=== PATIENT | female | born 1980 | race Caucasian/White ===

== ENCOUNTER → 2016-05-01 | Outpatient (CLI) | payer OTHER ==
[~2016-05-01] MED LIST: ACET-1256 PO; ALBU1AER9 INH; AMPH20TA2 PO; CHOL100010 PO; CHOL100027 PO; DIPH1TAB PO; ERGO1CAP41 PO; FLUT0.15 NAE; FLUT220A INH; FLVHFA44 INH; FURO20TA PO; GADAVIST IV PRN; IBUP-1050 PO; IMD2X PO; IPRASOL4 INH; LEVO112T2 PO; LEVO112T4 PO; LEVO200T6 PO; LURA80TA PO; MECL1TAB42 PO; MULT1CAP3 PO; OMEP20CA9 PO; OXYC-57 PO; OXYC1TAB3 PO; POLY335019 PO; RANI300T2 PO; SNG10 PO; SUCR1TAB PO; VALA500T60 PO; VLM2 PO; VLT500 PO; VNTHFA/IN INH; ZFRODT/8 PO; [UNRECOGNIZED DRUG - CODE] PO
--- NOTE | 2016-05-01 16:06 | DIAGNOSTIC IMAGING REPORT ---
MRI brain/pituitary BRAIN COMBO FOR PITUITARY CLINICAL HISTORY: CHRONIC NON-INTRACTABLE LEE,IRREG MENSES postoperative evaluation TECHNIQUE: Multi axial MRI acquisition pre and postcontrast administration COMPARISON STUDY: 05/19/2015 FINDINGS: Stable postoperative changes right cerebral hemisphere. Associated component of postprocedural encephalomalacia also unchanged. Ventricular system is midline. No evidence for midline structure deviation. Specific evaluation of the pituitary and parasellar region shows a pituitary to be unremarkable. There are no negative lay enhancing nodules. Pituitary stock and optic chiasm are unremarkable. IMPRESSION: 1. Stable postoperative change. 2. Normal study of the brain other than that noted. 3. Normal-appearing pituitary and parasellar region. Electronically signed by: Clay Arshad M.D. 05/01/2016 4:05 PM Dictated Date/Time: 05/01/2016 4:01 PM
== END | disposition home or self-care (01) ==
LOC: C.MRI 14:51
PROVIDERS: ATTEND Family Medicine
DX: R51 Headache (principal); C71.4 Malignant neoplasm of occipital lobe; D48.9 Neoplasm of uncertain behavior, unspecified; E22.9 Hyperfunction of pituitary gland, unspecified; R94.6 Abnormal results of thyroid function studies

== ENCOUNTER 2016-06-05 09:07 | Day surgery (SDC) | payer OTHER ==
[2016-05-27 09:55] VITALS: BMI 43.0
--- NOTE | 2016-05-27 15:52 | PAT Medication Instructions ---
Service Date May 27, 2016. Current Home Medication List Acetaminophen (Tylenol), 1,000 MG PO Q6H PRN for Pain Albuterol (Proair Hfa), 2 PUFFS INH Q4H PRN for SOB/Wheezing Amphetamine-Dextroamphetamine 20MG (Adderall 20MG), 1 TAB PO BID Cholecalciferol (Vitamin D), 1,000 INTER.UNIT PO DAILY Diazepam (Diazepam), 2 MG PO Q12 PRN for Anxiety Diphenhydramine Hcl (Benadryl Allergy), 25 MG PO prn ud Fluticasone Propionate Hfa (Flovent Hfa 220MCG Inhaler), 1 PUFF INH BID PRN for SOB/Wheezing Fluticasone Propionate (Nasal) (Flonase Allergy Relief), 2 SPRAYS FLAVIO DAILY PRN for Allergy Symptoms Furosemide (Lasix), 20 MG PO for leg swelling Ipratropium-Albuterol (Duoneb), 1 TREATMENT INH QID PRN for SOB/Wheezing Levothyroxine Sodium (Levothyroxine Sodium), 1 TAB PO Loperamide Hcl (Imodium), 2 MG PO DAILY PRN for Diarrhea Lurasidone Hcl (Latuda), 80 MG PO HS Meclizine Hcl (Meclizine Hcl), 25 MG PO TID PRN for Dizziness Montelukast Sod (Montelukast Sodium), 10 MG PO DAILY Ondansetron (Ondansetron Odt), 8 MG PO Q8 PRN for Nausea Polyethylene Glycol 3350 (Miralax), 17 GM PO DAILY PRN for Constipation Simethicone (Hm Gas Relief), 80-160 MG PO QID PRN for GAS Valacyclovir Hcl (Valtrex), 500 MG PO DAILY Medication Instructions For Your Scheduled Surgery - Hold the following medications the morning of surgery: Amphetamine-Dextroamphetamine 20MG (Adderall 20MG), 1 TAB PO BID Cholecalciferol (Vitamin D), 1,000 INTER.UNIT PO DAILY Diphenhydramine Hcl (Benadryl Allergy), 25 MG PO prn ud Furosemide (Lasix), 20 MG PO for leg swelling Loperamide Hcl (Imodium), 2 MG PO DAILY PRN for Diarrhea Polyethylene Glycol 3350 (Miralax), 17 GM PO DAILY PRN for Constipation Simethicone (Hm Gas Relief), 80-160 MG PO QID PRN for GAS - Take the following medications the morning of surgery with a sip of water OTHERWISE NOTHING TO EAT OR DRINK AFTER MIDNIGHT: Acetaminophen (Tylenol), 1,000 MG PO Q6H PRN for Pain (may take if needed up to 4 hours prior to surgery) Albuterol (Proair Hfa), 2 PUFFS INH Q4H PRN for SOB/Wheezing (use if needed; BRING TO HOSPITAL) Diazepam (Diazepam), 2 MG PO Q12 PRN for Anxiety Fluticasone Propionate Hfa (Flovent Hfa 220MCG Inhaler), 1 PUFF INH BID PRN for SOB/Wheezing Fluticasone Propionate (Nasal) (Flonase Allergy Relief), 2 SPRAYS FLAVIO DAILY PRN for Allergy Symptoms Ipratropium-Albuterol (Duoneb), 1 TREATMENT INH QID PRN for SOB/Wheezing Levothyroxine Sodium (Levothyroxine Sodium), 1 TAB PO Valacyclovir Hcl (Valtrex), 500 MG PO DAILY Meclizine Hcl (Meclizine Hcl), 25 MG PO TID PRN for Dizziness Ondansetron (Ondansetron Odt), 8 MG PO Q8 PRN for Nausea - Take the following medications as scheduled the night before surgery: Acetaminophen (Tylenol), 1,000 MG PO Q6H PRN for Pain Albuterol (Proair Hfa), 2 PUFFS INH Q4H PRN for SOB/Wheezing Amphetamine-Dextroamphetamine 20MG (Adderall 20MG), 1 TAB PO BID Diazepam (Diazepam), 2 MG PO Q12 PRN for Anxiety Fluticasone Propionate Hfa (Flovent Hfa 220MCG Inhaler), 1 PUFF INH BID PRN for SOB/Wheezing Fluticasone Propionate (Nasal) (Flonase Allergy Relief), 2 SPRAYS FLAVIO DAILY PRN for Allergy Symptoms Ipratropium-Albuterol (Duoneb), 1 TREATMENT INH QID PRN for SOB/Wheezing Lurasidone Hcl (Latuda), 80 MG PO HS Meclizine Hcl (Meclizine Hcl), 25 MG PO TID PRN for Dizziness Montelukast Sod (Montelukast Sodium), 10 MG PO DAILY Ondansetron (Ondansetron Odt), 8 MG PO Q8 PRN for Nausea If you have any questions please call us at [phone] or [phone] or [phone]
[~2016-06-05] VITALS: Ht 160 cm; Wt 112.4 kg
[~2016-06-05 09:07] MED LIST changes: +CEFAZOLIN 2000 MG/60 ML D5W IV SCH; -CHOL100027 PO; -DIPH1TAB PO; +DIPH1TAB87 PO; -ERGO1CAP41 PO; -FLVHFA44 INH; -GADAVIST IV PRN; -IBUP-1050 PO; +LACTATED RINGER'S 1000ML 1,000 ML IV SCH; -LEVO112T2 PO; -LEVO112T4 PO; -MULT1CAP3 PO; -OMEP20CA9 PO; -OXYC-57 PO; -OXYC1TAB3 PO; -RANI300T2 PO; -SUCR1TAB PO; -VALA500T60 PO; -VNTHFA/IN INH
[2016-06-05 09:20] VITALS: BP 105/59; PULSE 58; TEMP 36.7; O2SAT 98; Ht 160 cm; Wt 112.4 kg
[2016-06-05] MEDS ORDERED: PROPOFOL IV EMULSION 10 MG/ML 20 ML VIAL IV ONE (11:15)
[2016-06-05] MEDS ORDERED: ROCURONIUM BROMIDE 10 MG/ML 5 ML VIAL ONE (11:15)
[2016-06-05] MEDS ORDERED: FENTANYL CITRATE INJ 50 MCG/1 ML 2 ML VIAL ONE (11:16)
[2016-06-05] MEDS ORDERED: MIDAZOLAM HCL 1 MG/ML 2ML VIAL ONE (11:18)
--- NOTE | 2016-06-05 11:30 | History & Physical Bridge Note ---
H&P Re-Evaluation Bridge Note: I have examined the patient, reviewed the History & Physical and in the interval since the performance of the History & Physical I have noted the following changes of clinical significance: No changes noted
[2016-06-05] MEDS ORDERED: BUPIVACAINE 0.5 % 5 MG/1 ML MPF 30ML VIAL ONE (11:49)
[2016-06-05] MEDS ORDERED: BACITRACIN OINT 15 GM TUBE ONE (11:49)
[2016-06-05] MEDS ORDERED: LIDOCAINE HCL 1% 20 ML VIAL ONE (11:49)
[2016-06-05] MEDS ORDERED: ATROPINE SULFATE 0.1 MG/ML 5ML SYR IV PRN (12:00)
[2016-06-05] MEDS ORDERED: ONDANSETRON INJ 2 MG/ML 2 ML VIAL IV PRN (12:00)
[2016-06-05] MEDS ORDERED: EpHEDrine SULFATE INJ 50 MG/ML AMP IV PRN (12:00)
[2016-06-05] MEDS ORDERED: LIDOCAINE HCL 2% 2 ML VIAL (20MG/ML) ONE (12:06)
[2016-06-05] MEDS ORDERED: DEXAMETHASONE SOD INJ 4 MG/ML VIAL ONE (12:32)
[2016-06-05] MEDS ORDERED: GLYCOPYRROLATE INJ 0.2 MG/ML VIAL ONE (13:03)
[2016-06-05] MEDS ORDERED: ONDANSETRON INJ 2 MG/ML 2 ML VIAL ONE (13:03)
[2016-06-05] MEDS ORDERED: NEOSTIGMINE METHYLSULFATE 5 MG/5 ML SYR ONE (13:03)
--- NOTE | 2016-06-05 13:17 | [facility] Post Operative Brief Note ---
Immediate Operative Summary Operative Date Jun 05, 2016. 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
[2016-06-05] MEDS ORDERED: OXYC-57 PO (13:20)
--- NOTE | 2016-06-05 13:23 | Discharge Instructions ---
Discharge Instructions Date of Service Jun 05, 2016. Visit Reason for Visit: Epigastric Pain Discharge Discharge Diagnosis / Problem: S/P laparoscopic cholecystectomy Discharge Goals Goal(s): Decrease discomfort, Improve function Activity Recommendations Activity Limitations: per Instructions/Follow-up section Lifting Limitations: no more than 25 pounds Exercise/Sports Limitations: gradually increase as tolerated May Resume Sexual Activity: when tolerated Shower/Bathe: may shower/bathe in 3 days Driving or Machine Use: resume 3 days after discharge Anesthesia . Post Anesthesia Instructions: If you have had General Anesthesia or IV Sedation: * Do not drive today. * Resume driving when surgeon permits. * Do not make important decisions or sign legal documents today. * Call surgeon for: 1. Temperature elevations greater than 101 degrees F. 2. Uncontrollable pain. 3. Excessive bleeding. 4. Persistent nausea and vomiting. 5. Medication intolerance (nausea, vomiting or rash). * For nausea and vomiting use only clear liquids such as: tea, soda, bouillon until nausea subsides, then gradually increase diet as tolerated. * If you have any concerns or questions, call your surgeon's office. If physician is unavailable and it is an emergency, call 911 or go to the nearest emergency room. . Instructions / Follow-Up Instructions / Follow-Up keep all dressing on for 4 days, she can take a shower on 06/09/2016, no driving while taking pain medicine, follow up 1 week, Diet Recommendations Recommended Home Diet: resume previous diet Procedures Procedures Performed: laproscopic cholecystectomy Pending Studies Studies pending at discharge: no Medical Emergencies . Who to Call and When: Medical Emergencies: If at any time you feel your situation is an emergency, please call 911 immediately. . Non-Emergent Contact Non-Emergency issues call your: Surgeon Call Non-Emergent contact if: you have a fever, temperature is above 100.5, your pain is not controlled, your pain is worsening, wound has increased drainage, wound has increased redness . . "Provider Documentation" section prepared by Wilton Bowden. [place] Drug Monitoring Program Search Results: no issues identified
[2016-06-05] MEDS: FENTANYL CITRATE INJ 50 MCG/1 ML 2 ML VIAL IV PRN ×4 (13:25→13:43)
[2016-06-05] MEDS ORDERED: HYDROmorphone INJ 1 MG/ML SYR IV PRN (13:30)
[2016-06-05] MEDS ORDERED: OXYCODONE/ACETAMINOPHEN 5-325 TAB PO PRN (13:30)
--- NOTE | 2016-06-05 14:00 | Anesthesiology Progress Note ---
Anesthesia Post Op Note Date & Time Jun 05, 2016 at 13:59 Vital Signs Pain Intensity: 5 Vital Signs Past 12 Hours Date Time Temp Pulse Resp B/P Pulse Ox O2 Delivery O2 Flow Rate FiO2 06/05/16 13:45 58 15 106/58 97 Nasal Cannula 2 06/05/16 13:35 60 11 112/60 98 Nasal Cannula 2 06/05/16 13:25 59 14 109/68 94 Room Air 06/05/16 13:18 36.2 68 16 149/101 94 Room Air 06/05/16 09:20 36.7 58 18 105/59 98 Room Air Notes Mental Status: alert / awake / arousable, participated in evaluation Pt Amnestic to Procedure: Yes Nausea / Vomiting: adequately controlled Pain: adequately controlled Airway Patency, RR, SpO2: stable & adequate BP & HR: stable & adequate Hydration State: stable & adequate Anesthetic Complications: no major complications apparent Pt doing well.
[2016-06-05 14:14] VITALS: BP 128/68; PULSE 58; TEMP 36.5; O2SAT 96
[2016-06-05 14:45] VITALS: BP 131/79; PULSE 55; O2SAT 95
[2016-06-05] MEDS ORDERED: OXYCODONE/ACETAMINOPHEN 5-325 TAB ONE (14:57)
[2016-06-05 15:15] VITALS: BP 140/88; PULSE 55; TEMP 36.6; O2SAT 97
--- NOTE | 2016-06-05 22:09 | OPERATIVE REPORT ---
DATE OF OPERATION: 06/05/2016 PREOPERATIVE DIAGNOSIS: Dysfunctioning of the gallbladder. POSTOPERATIVE DIAGNOSIS: Same. PROCEDURE: Laparoscopic cholecystectomy. SURGEON: Dr. Wilton Bowden. ANESTHESIA: General. ESTIMATED BLOOD LOSS: About 20 mL FINDINGS: Dysfunction of the gallbladder and chronic cholecystitis. IV FLUIDS: 1000 mL COMPLICATIONS: None. INDICATIONS FOR THE PROCEDURE: This is a 35-year-old female, who presented with right upper quadrant pain. The patient has a HIDA scan showing dysfunction of the gallbladder and patient will be required to do a laparoscopic cholecystectomy. I did talk to the patient about the benefit, risk, alternate procedure. I indicated the risks may include, but not limited, such as bleeding, infection, injury to common bile duct, may need an ERCP, DVT, incisional hernia, even . The patient understands and she signed informed consent and I answered all questions. DETAILS OF PROCEDURE: We brought the patient to the OR and put the patient in the supine position. The patient received SCDs on bilateral legs to prevent DVT. Also, the patient received 2 grams Ancef IV for prophylactic antibiotic. The patient received general anesthesia without difficulty. The abdomen was prepped and draped in routine sterile fashion. After a timeout, I injected local the anesthesia just above umbilicus. Then I made a small incision just above umbilicus, opened fascia and opened peritoneum under direct vision. I put the Mansi trocar in, connected to CO2 to create a pneumoperitoneum. Flow rate is 6 liter per minute. Pressure not more than 14 mmHg. Once we got a nice pneumoperitoneum, we put a 10 mm camera in, looked around the abdomen showing normal findings on the stomach, small bowel, large bowel; however, there was some omentum covering the gallbladder showing chronic cholecystitis. Then, we put another 3.5 mm trocar on the right upper quadrant. Once all trocars were in, I put a grasper in to hold the base of the gallbladder, put a direction to the diaphragm and put another grasper in to hold the pouch of the gallbladder, put the latter in to expose the triangle of Calot. The cystic duct was identified and mobilized. Then I put two 5 mm metal clips on the proximal cystic duct and one on the distal cystic duct. Then, I used the scissors, transecting the cystic duct. The cystic artery was identified and mobilized. Then, I put two 5 mm metal clips on the cystic artery proximally and one on the distal. Then, I used the scissors, transecting the cystic artery and then used the Bovie to take down the gallbladder without difficulty from the liver bed. Rechecked and no active bleeding, no bile leak. Then we removed the gallbladder through the catch bag. Then, we reinserted Mansi trocar in, connected to CO2 to create a pneumoperitoneum again, looked around the abdomen showing normal findings, no active bleeding on the liver bed, no bile leak on the liver bed and no active bleeding from the trocar sites. After we removed all trocars under direct vision, the pneumoperitoneum released, I closed the umbilical fascial layer by using 3-0 Vicryl [id number] x2, closed subcutaneous layer by using 2-0 Vicryl, closed skin by using 4-0 Vicryl, another 3.5 mm trocar site closed skin only by using 4-0 Vicryl. Then we put the dressing on. The patient tolerated the procedure well. The specimen sent to pathology. All the instrument, needles and sponge count correct x2 at the end of case. The patient transferred to recovery room in stable condition. After the procedure, I did talk to a patient family member about the OR findings, the procedure we did and they understand. I will follow up the patient in 1 week. I attest to the content of the Intraoperative Record and any orders documented therein. Any exceptions are noted below. AMEENA
[2016-06-06] MEDS ORDERED: CEFAZOLIN IV 2,000 MG/60 ML D5W IV ONE (06:00)
[2016-12-26] MEDS ORDERED: CEFD1CAP14 PO (02:15)
== END 2016-06-05 15:25 | disposition home or self-care (01) ==
LOC: C.ACU 09:07
PROVIDERS: ATTEND Surgery
DX: K81.1 Chronic cholecystitis (principal); Z90.5 Acquired absence of kidney; F32.9 Major depressive disorder, single episode, unspecified; E66.01 Morbid (severe) obesity due to excess calories; Z80.0 Family history of malignant neoplasm of digestive organs; E55.9 Vitamin D deficiency, unspecified; F17.200 Nicotine dependence, unspecified, uncomplicated; E03.9 Hypothyroidism, unspecified; F41.9 Anxiety disorder, unspecified; F31.9 Bipolar disorder, unspecified; M79.7 Fibromyalgia

== ENCOUNTER 2016-06-15 12:21 | Emergency (ER) | payer OTHER ==
[~2016-06-15] VITALS: Ht 160 cm; Wt 110.7 kg
[~2016-06-15 12:21] MED LIST changes: -CEFAZOLIN 2000 MG/60 ML D5W IV SCH; -LACTATED RINGER'S 1000ML 1,000 ML IV SCH
[2016-06-15 12:27] VITALS: TEMP 37.1; Ht 160 cm; Wt 110.7 kg
[2016-06-15] MEDS ORDERED: CHOL100027 PO (12:46)
[2016-06-15] MEDS ORDERED: FLVHFA44 INH (12:46)
[2016-06-15] MEDS ORDERED: VALA500T60 PO (12:46)
[2016-06-15] MEDS ORDERED: VNTHFA/IN INH (12:46)
[2016-06-15] MEDS ORDERED: SODIUM CHLORIDE 0.9% 1000ML 1,000 ML IV STA (13:17)
[2016-06-15] MEDS ORDERED: ALUMINUM/MAGNESIUM SUSP 30 ML UDC PO STA (13:17)
[2016-06-15] MEDS ORDERED: LIDOCAINE HCL 2% VISC SOLN 20 ML UDC PO STA (13:17)
[2016-06-15 13:48] LABS: BASO % 0.5 %; BASO ABS # 0.03 K/uL (0-0.2); COMPLETE YES; EOS % 2.4 %; HEMATOCRIT 37.2 % (37-47); IG% 0.2 %; MEAN CELL VOLUME 92.1 fL (80-100); MEAN CORPUSCULAR HEMOGLOBIN 31.2 pg (25-34); MEAN CORPUSCULAR HGB CONC 33.9 g/dl (32-36); MEAN PLATELET VOLUME 10.3 fL (7.4-10.4); MONO % 9.1 %; NEUT % 52.8 %; PLATELET COUNT 224 K/uL (130-400); RED BLOOD COUNT 4.04 M/uL (4.2-5.4); WHITE BLOOD COUNT 6.28 K/uL (4.8-10.8)
[2016-06-15 13:48] LABS: PARTIAL THROMBOPLASTIN RATIO 0.9; PROTHROMBIN TIME (PATIENT) 10.3 SECONDS (9.0-12.0)
[2016-06-15 13:49] LABS: BLOOD UREA NITROGEN 10 mg/dl (7-18); BUN/CREATININE RATIO 9.1 (10-20); CALCIUM 8.5 mg/dl (8.5-10.1); CARBON DIOXIDE 26 mmol/L (21-32); CHLORIDE 104 mmol/L (98-107); GLUCOSE 100 mg/dl (70-99); POTASSIUM 3.6 mmol/L (3.5-5.1); SODIUM 140 mmol/L (136-145)
[2016-06-15 13:50] LABS: ALT/SGPT 34 U/L (12-78); AST/SGOT 16 U/L (15-37)
[2016-06-15 13:52] LABS: ALKALINE PHOSPHATASE 87 U/L (45-117)
[2016-06-15 13:59] LABS: POINT OF CARE TROPONIN I 0.01 ng/ml (0-0.045)
[2016-06-15 13:59] LABS: URINE APPEARANCE CLEAR (CLEAR); URINE BILIRUBIN NEG (NEG); URINE COLOR DK YELLOW; URINE EPITHELIAL CELL AUTO >30 /lpf (0-5); URINE NITRITE NEG (NEG); URINE PH 5.5 (4.5-7.5); UROBILINOGEN NEG (NEG)
[2016-06-15 14:00] LABS: MANUAL MICROSCOPIC REQUIRED? NO; REVIEW REQ? YES
[2016-06-15 14:12] LABS: URINE MUCUS PRESENT (NONE PRSENT)
--- NOTE | 2016-06-15 14:24 | DIAGNOSTIC IMAGING REPORT ---
CHEST 2 VIEWS ROUTINE CLINICAL HISTORY: Cough, congestion COMPARISON STUDY: 08/17/2015 FINDINGS: The cardiac and mediastinal contours are normal. There is no evidence of focal pulmonary consolidation. There is no evidence of failure. No pleural effusions are visualized.[ An opacity at the level the left cardiophrenic angle, likely represents a fat pad or focal atelectatic change IMPRESSION: No active disease in the chest. Electronically signed by: Chinedu Henderson M.D. 06/15/2016 2:22 PM Dictated Date/Time: 06/15/2016 2:18 PM
[2016-06-15] MEDS ORDERED: OXYC1TAB3 PO (14:36)
[2016-06-15 14:51] VITALS: BP 120/56; PULSE 60; O2SAT 98
--- NOTE | 2016-06-23 20:01 | EMERGENCY ROOM VISIT NOTE ---
History Report prepared by Leon: Juni Olea Under the Supervision of: Dr. Reginaldo Carson M.D. First contact with patient: 13:05 Chief Complaint: ABDOMINAL PAIN Stated Complaint: PAIN IN STOMACH AND CHEST Nursing Triage Summary: Pt gallbladder removed 06/05, reaction for tape Last night had pain bilateral upper abdomen that went into back and is a burning pain, occurs for a few minutes and then fades. "my stomach is making these funny gurgling noises and I have diarrhea". Pain in right upper and mid abdomen at this time. Pt c/o lump in "belly button since the surgery". C/O upper abd bloating. Denies n/v Belches a lot after eating, not really passing much gas. History of Present Illness The patient is a 35 year old female who presents to the Emergency Room with complaints of intermittent RUQ abdominal pain beginning last night. She had a laparoscopic cholecystectomy 10 days ago. She states that she had the surgery after nearly eight years of abdominal pain. The patient describes her pain as " a burning sensation" and states that it wraps around her abdomen and into her back. She states "it takes my breath away". She states that her pain lasts for 15-20 minutes at a time. She states that the location is slightly different than the pain she had prior to her cholecystectomy. The patient states that her pain prior to her surgery felt somewhat similar, but not as severe and was always associated with nausea. She states that her previous pain felt more "cramp-like" as opposed to her current "burning" pain. She denies noticing anything initiating her pain. The patient also complains of muscle cramping, and diarrhea. She states that she has not defecated in two days. She denies any leg swelling, nausea, and vomiting. The patient has a history of a tubal ligation. She has no known history of blood clots. She notes that she is a smoker. The patient also notes that she had a very similar feeling pain occur after drinking alcohol around two years ago. Source of History: patient Onset: last night Position: abdomen (RUQ) Symptom Intensity: 15-20 minute long episodes Quality: burning Timing: intermittent Associated Symptoms: + diarrhea, No nausea, No vomiting Note: The patient denies any leg swelling. She also complains of muscle cramping. Review of Systems See HPI for pertinent positives & negatives. A total of 10 systems reviewed and were otherwise negative. Past Medical & Surgical Medical Problems: (1) Absent kidney, congenital (2) Asthma (3) Bipolar 1 disorder, depressed, severe (4) Carpal tunnel syndrome (5) Congenital lymphedema (6) Episodic methamphetamine abuse (7) Fibromyalgia (8) Generalized anxiety disorder (9) MRSA (methicillin resistant Staphylococcus aureus) (10) resection of brain tumor (11) Thyroid disorder Surgical Problems: (1) H/O tubal ligation Family History FH: HTN (hypertension) FH: cancer FH: diabetes mellitus FH: gallbladder disease FH: heart disease FH: kidney disease FH: lung disease FH: seizures Social History Smoking Status: Current Every Day Smoker Alcohol Use: occasionally Drug Use: none Marital Status: single Housing Status: lives with roommate Occupation Status: unemployed Current/Historical Medications Scheduled Albuterol Hfa (Ventolin Hfa), 2 PUFFS INH Q4H Amphetamine-Dextroamphetamine 20MG (Adderall 20MG), 1 TAB PO BID Cholecalciferol (Vitamin D 1000 Unit), 1,000 UNITS PO DAILY Diphenhydramine Hcl (Benadryl Allergy), 25 MG PO prn ud Fluticasone Propionate (Flovent Hfa), 2 PUFFS INH BID Lurasidone Hcl (Latuda), 80 MG PO HS Montelukast Sod (Montelukast Sodium), 10 MG PO DAILY Valacyclovir (Valtrex), 500 MG PO DAILY Scheduled PRN Acetaminophen (Tylenol), 1,000 MG PO Q6H PRN for Pain Diazepam (Diazepam), 2 MG PO Q12 PRN for Anxiety Fluticasone Propionate (Nasal) (Flonase Allergy Relief), 2 SPRAYS FLAVIO DAILY PRN for Allergy Symptoms Furosemide (Lasix), 20 MG PO for leg swelling Ipratropium-Albuterol (Duoneb), 1 TREATMENT INH QID PRN for SOB/Wheezing Loperamide Hcl (Imodium), 2 MG PO DAILY PRN for Diarrhea Meclizine Hcl (Meclizine Hcl), 25 MG PO TID PRN for Dizziness Ondansetron (Ondansetron Odt), 8 MG PO Q8 PRN for Nausea Oxycodone Ir (Roxicodone Ir), 5 MG PO Q4H PRN for Pain Polyethylene Glycol 3350 (Miralax), 17 GM PO DAILY PRN for Constipation Simethicone (Hm Gas Relief), 80-160 MG PO QID PRN for GAS Miscellaneous Medications Levothyroxine Sodium (Levothyroxine Sodium), 200 MCG PO Allergies Coded Allergies: Metformin (Verified Allergy, Unknown, Breathing difficulty,dizziness., ) [place] (Verified Allergy, Unknown, anaphylaxis, 06/15/16) with canned salmon Physical Exam Vital Signs Date Time Temp Pulse Resp B/P Pulse Ox O2 Delivery O2 Flow Rate FiO2 06/15/16 14:51 60 16 120/56 98 06/15/16 14:00 68 16 124/78 06/15/16 13:57 73 06/15/16 12:27 37.1 85 18 13/48 98 Room Air Physical Exam Constitutional: Vital signs reviewed. Eyes: Pupils are equal round reactive to light. Conjunctiva are noninjected. ENT: Pharynx is clear without erythema or exudate. Mucous membranes are moist. Neck supple without meningeal signs. Respiratory: Clear to auscultation bilaterally. Breath sounds are equal bilaterally. Cardiovascular: Regular rate and rhythm. No rubs or gallops. GI: Soft, and nondistended with mild right upper quadrant abdominal tenderness. Bowel sounds are present. Incisions are clean, dry, and intact. No signs of cellulitis or bleeding. Musculoskeletal: No peripheral edema. No lower extremity tenderness. No CVA tenderness. Integumentary: No cyanosis. Neurological: The patient is awake and alert. No focal deficits. Psychiatric: Normal affect. Medical Decision & Procedures ER Provider Diagnostic Interpretation: X-ray results as stated below per interpretation by me and the radiologist: CHEST 2 VIEWS ROUTINE FINDINGS: The cardiac and mediastinal contours are normal. There is no evidence of focal pulmonary consolidation. There is no evidence of failure. No pleural effusions are visualized.[ An opacity at the level the left cardiophrenic angle, likely represents a fat pad or focal atelectatic change IMPRESSION: No active disease in the chest. Electronically signed by: Chinedu Henderson M.D. Laboratory Results 06/15/16 13:43 Red Blood Count 4.04, Mean Corpuscular Volume 92.1, Mean Corpuscular Hemoglobin 31.2, Mean Corpuscular Hemoglobin Concent 33.9, Mean Platelet Volume 10.3, Neutrophils (%) (Auto) 52.8, Lymphocytes (%) (Auto) 35.0, Monocytes (%) (Auto) 9.1, Eosinophils (%) (Auto) 2.4, Basophils (%) (Auto) 0.5, Neutrophils # (Auto) 3.32, Lymphocytes # (Auto) 2.20, Monocytes # (Auto) 0.57, Eosinophils # (Auto) 0.15, Basophils # (Auto) 0.03 06/15/16 12:55 Test 06/15/16 12:50 06/15/16 12:55 06/15/16 13:38 06/15/16 13:43 Urine Color DK YELLOW Urine Appearance CLEAR (CLEAR) Urine pH 5.5 (4.5-7.5) Urine Specific [place] 1.030 (1.000-1.030) Urine Protein NEG (NEG) Urine Glucose (UA) NEG (NEG) Urine Ketones NEG (NEG) Urine Occult Blood NEG (NEG) Urine Nitrite NEG (NEG) Urine Bilirubin NEG (NEG) Urine Urobilinogen NEG (NEG) Urine Leukocyte Esterase SMALL (NEG) Urine WBC (Auto) 10-30 /hpf (0-5) Urine RBC (Auto) 0-4 /hpf (0-4) Urine Hyaline Casts (Auto) 1-5 /lpf (0-5) Urine Epithelial Cells (Auto) >30 /lpf (0-5) Urine Bacteria (Auto) NEG (NEG) Urine Renal Epithelial Cells /lpf (0-5) Urine Pathogenic Casts /lpf (0) Urine Mucus PRESENT (NONE PRSENT) Urine Test NEG (NEG) Prothrombin Time 10.3 SECONDS (9.0-12.0) Prothromb Time International Ratio 1.0 (0.9-1.1) Activated Partial Thromboplast Time 22.2 SECONDS (21.0-31.0) Partial Thromboplastin Ratio 0.9 Anion Gap 10.0 mmol/L (3-11) Est Creatinine Clear Calc Drug Dose 86.9 ml/min Estimated GFR () 76.4 Estimated GFR (Non- 65.9 BUN/Creatinine Ratio 9.1 (10-20) Calcium Level 8.5 mg/dl (8.5-10.1) Total Bilirubin 0.4 mg/dl (0.2-1) Direct Bilirubin < 0.1 mg/dl (0-0.2) Aspartate Amino Transf (AST/SGOT) 16 U/L (15-37) Alanine Aminotransferase (ALT/SGPT) 34 U/L (12-78) Alkaline Phosphatase 87 U/L (45-117) Total Protein 7.4 gm/dl (6.4-8.2) Albumin 3.5 gm/dl (3.4-5.0) Lipase 93 U/L (73-393) Bedside D-Dimer 438 ng/mlFEU (0-450) Bedside Troponin I 0.010 ng/ml (0-0.045) White Blood Count 6.28 K/uL (4.8-10.8) Red Blood Count 4.04 M/uL (4.2-5.4) Hemoglobin 12.6 g/dL (12.0-16.0) Hematocrit 37.2 % (37-47) Mean Corpuscular Volume 92.1 fL (80-100) Mean Corpuscular Hemoglobin 31.2 pg (25-34) Mean Corpuscular Hemoglobin Concent 33.9 g/dl (32-36) Platelet Count 224 K/uL (130-400) Mean Platelet Volume 10.3 fL (7.4-10.4) Neutrophils (%) (Auto) 52.8 % Lymphocytes (%) (Auto) 35.0 % Monocytes (%) (Auto) 9.1 % Eosinophils (%) (Auto) 2.4 % Basophils (%) (Auto) 0.5 % Neutrophils # (Auto) 3.32 K/uL (1.4-6.5) Lymphocytes # (Auto) 2.20 K/uL (1.2-3.4) Monocytes # (Auto) 0.57 K/uL (0.11-0.59) Eosinophils # (Auto) 0.15 K/uL (0-0.5) Basophils # (Auto) 0.03 K/uL (0-0.2) RDW Standard Deviation 44.2 fL (36.4-46.3) RDW Coefficient of Variation 13.2 % (11.5-14.5) Immature Granulocyte % (Auto) 0.2 % Immature Granulocyte # (Auto) 0.01 K/uL (0.00-0.02) Date/Time Source Procedure Growth Status 06/15/16 12:50 Urine , Clean Catch Urine Culture - Final THREE TYPES OF ORGANISMS PRESENT, ALL... Complete Laboratory results as reviewed by me. Medications Administered Medications (Trade) Dose Ordered Sig/Emir Route Start Time Stop Time Status Last Admin Dose Admin Sodium Chloride (Nss 1000ml) 1,000 ml @ 999 mls/hr Q1H1M STAT IV 06/15/16 13:17 06/15/16 14:17 DC 06/15/16 13:56 999 MLS/HR Lidocaine HCl (Viscous Lidocaine 2% Soln) 10 ml NOW STAT PO 06/15/16 13:17 06/15/16 13:19 DC 06/15/16 13:57 10 ML Al Hydroxide/Mg Hydroxide (Maalox Susp) 30 ml NOW STAT PO 06/15/16 13:17 06/15/16 13:19 DC 06/15/16 13:57 30 ML ECG Indication: abdominal pain Rate (beats per minute): 63 Rhythm: normal sinus Findings: no acute ischemic change, no ectopy ED Course 1307: The patient was evaluated in room B5. A complete history and physical exam was performed. 1317: Ordered Maalox Susp 30 mL PO, Lidocaine HCl 10 mL PO, Sodium Chloride 1000 ml @ 999 mls/hr IV. 1425: I reassessed the patient. She states that the GI cocktail improved her symptoms. She has no significant pain. The patient has mild epigastric tenderness on examination. We reviewed her test results, and I recommended that she take [id number] Prilosec and use Maalox as needed for episodes of pain. The patient requested something stronger for her pain, and states that Dr. Bowden gave her Percocet which helped. We discussed the risks and potential adverse effects of Percocet, but she would still like a short prescription. The patient verbalized agreement and understanding of the treatment plan. She was discharged home. Medical Decision This is a 35-year-old female presents with upper abdominal pain. Differential diagnosis includes postoperative pain, abscess, seroma, bowel obstruction, peptic ulcer disease, pancreatitis. I did perform a limited focused review of portions of the patient's old chart on the electronic medical record. She had a laparoscopic cholecystectomy by Dr. Bowden on June 05. I did evaluate the patient as noted above. IV access was established. I did treat the patient with a GI cocktail and normal saline IV. I did order and personally review the patient's UA as described above. She does not have any urinary symptoms so a urine culture was sent. I did review her twelve-lead EKG as described above. I did order and review the patient's blood work as noted in the electronic medical record. Her white blood cell count is not elevated. LFTs are unremarkable. Troponin and d-dimer are negative. I did order a chest x-ray. I did review the images myself as well as the radiology report as described above. I did reassess patient. She is not having significant pain. She had improvement with the GI cocktail. At this time I did not have a high suspicion for seroma or abscess. She has minimal tenderness on examination and so I did not feel a CT scan was indicated. I did recommend close follow with Dr. Bowden. She was advised to take Prilosec and she was given a prescription for pain medicine per her request. She was discharged in good condition. [place] Drug Monitoring Program Search Results: patient reviewed within database, see additional documentation Drug Monitoring Findings: The patient received recieved [address] Bowden on June 05 Impression Primary Impression: Upper abdominal pain Additional Impression: Diarrhea Scribe Attestation The scribe's documentation has been prepared under my direct and personally reviewed by me in its entirety. I confirm that the note above accurately reflects all work, treatment, procedures, and medical decision making performed by me. Departure Information Dispostion Home / Self-Care Prescriptions Oxycodone Ir (Roxicodone Ir) 5 Mg Tab 5 MG PO Q4H Y for Pain, #14 TAB Prov: Reginaldo Carson M.D. 06/15/16 Referrals Slim Adamson M.D. (PCP) Forms Call Back Authorization, HOME CARE DOCUMENTATION FORM, IMPORTANT VISIT INFORMATION Patient Instructions ED Abd Pain Unkn Cause Fem, My [facility] Additional Instructions You have been examined and treated today on an emergency basis only. This is not a substitute for, or an effort to provide, complete comprehensive medical care. It is impossible to recognize and treat all injuries or illnesses in a single emergency department visit. It is therefore important that you follow up closely with your physician. Call as soon as possible for an appointment. Return for worsening symptoms or if you develop fever, vomiting, shortness of breath or any other concerning symptoms. Take [id number] Prilosec for 2 weeks or longer only if directed by your physician. Problem Qualifiers Additional Impression: Diarrhea Diarrhea type: unspecified type Qualified Codes: R19.7 - Diarrhea, unspecified
[2016-12-26] MEDS ORDERED: CEFD1CAP14 PO (02:15)
== END 2016-06-15 14:53 | disposition home or self-care (01) ==
LOC: C.EDB 12:21
DX: R10.11 Right upper quadrant pain (principal); R19.7 Diarrhea, unspecified; F17.200 Nicotine dependence, unspecified, uncomplicated; Q60.0 Renal agenesis, unilateral; J45.909 Unspecified asthma, uncomplicated; F31.4 Bipolar disorder, current episode depressed, severe, without psychotic features; G56.00 Carpal tunnel syndrome, unspecified upper limb; Q82.0 Hereditary lymphedema; M79.7 Fibromyalgia; F41.1 Generalized anxiety disorder; Z86.011 Personal history of benign neoplasm of the brain; Z82.49 Family history of ischemic heart disease and other diseases of the circulatory system; Z83.3 Family history of diabetes mellitus; Z82.0 Family history of epilepsy and other diseases of the nervous system

== ENCOUNTER 2016-09-01 12:06 | Emergency (ER) | payer OTHER ==
[~2016-09-01] VITALS: Ht 160 cm; Wt 107.7 kg
[~2016-09-01 12:06] MED LIST changes: -ALBU1AER9 INH; -CHOL100010 PO; +CHOL100027 PO; +DIPH1TAB PO; -DIPH1TAB87 PO; -FLUT220A INH; +FLVHFA44 INH; +OXYC1TAB3 PO; +VALA500T60 PO; -VLT500 PO; +VNTHFA/IN INH
[2016-09-01 12:07] VITALS: TEMP 36.7; Ht 160 cm; Wt 107.7 kg
--- NOTE | 2016-09-01 13:06 | DIAGNOSTIC IMAGING REPORT ---
RIGHT WRIST 4 VIEWS CLINICAL HISTORY: Right wrist injury. FINDINGS: 4 views of the right wrist are correlated with radiographs of the right hand dated 12/23/2015. The skeletal structures are well mineralized. No acute fracture is seen. The joint spaces are preserved. A tiny ossific density adjacent the ulnar styloid is unchanged and may represent a remote avulsion injury. The overlying soft tissues are normal in appearance. IMPRESSION: No acute bony abnormality is seen in the right wrist. Electronically signed by: Paul Wren M.D. 09/01/2016 1:04 PM Dictated Date/Time: 09/01/2016 1:03 PM
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
[2016-09-01 14:02] VITALS: BP 135/80; PULSE 75; O2SAT 97
== END 2016-09-01 14:04 | disposition home or self-care (01) ==
LOC: C.EDB 12:07 → C.EDD 14:04
DX: S69.91XA Unspecified injury of right wrist, hand and finger(s), initial encounter (principal); X58.XXXA Exposure to other specified factors, initial encounter; T74.11XA Adult physical abuse, confirmed, initial encounter; J45.909 Unspecified asthma, uncomplicated; G56.00 Carpal tunnel syndrome, unspecified upper limb; Q82.0 Hereditary lymphedema; M79.7 Fibromyalgia

== ENCOUNTER 2017-04-13 17:59 | Emergency (ER) | payer OTHER ==
[~2017-04-13] VITALS: Ht 160 cm; Wt 93.2 kg
[~2017-04-13 17:59] MED LIST changes: +CEFD1CAP14 PO; -DIPH1TAB PO; +DIPH1TAB87 PO; -FLUT0.15 NAE; -FLVHFA44 INH; -LURA80TA PO; -MECL1TAB42 PO; -OXYC1TAB3 PO; -SNG10 PO; -VLM2 PO; -ZFRODT/8 PO; -[UNRECOGNIZED DRUG - CODE] PO
[2017-04-13 18:13] VITALS: TEMP 37.2; Ht 160 cm; Wt 93.2 kg
[2017-04-13] MEDS ORDERED: ACETAMINOPHEN 500 MG TAB PO STA (18:55)
[2017-04-13] MEDS ORDERED: ZFRODT/8 PO (18:56)
[2017-04-13] MEDS ORDERED: MoRPHine SULFATE 4 MG/ML 1 ML CARP\\VIAL IV PRN (19:00)
[2017-04-13] MEDS ORDERED: SODIUM CHLORIDE 0.9% 1000ML 1,000 ML IV ONE (19:00)
[2017-04-13] MEDS ORDERED: GI COCKTAIL PO STA (19:29)
[2017-04-13] MEDS ORDERED: LEVO112T4 PO (19:30)
[2017-04-13] MEDS ORDERED: OMEP40CA41 PO (19:30)
[2017-04-13] MEDS ORDERED: LIDOCAINE HCL 2% VISC SOLN 20 ML UDC ONE (19:35)
[2017-04-13] MEDS ORDERED: ALUMINUM/MAGNESIUM SUSP 30 ML UDC ONE (19:35)
[2017-04-13 19:38] LABS: BASO % 0.6 %; BASO ABS # 0.03 K/uL (0-0.2); EOS % 3.1 %; EOS ABS # 0.15 K/uL (0-0.5); HEMATOCRIT 38.4 % (37-47); HEMOGLOBIN 12.8 g/dL (12.0-16.0); IG# 0.01 K/uL (0.00-0.02); LYMPH % 31.2 %; LYMPH ABS # 1.52 K/uL (1.2-3.4); MEAN CORPUSCULAR HGB CONC 33.3 g/dl (32-36); MEAN PLATELET VOLUME 10.1 fL (7.4-10.4); MONO % 8.6 %; MONO ABS # 0.42 K/uL (0.11-0.59); NEUT % 56.3 %; NEUT ABS # 2.74 K/uL (1.4-6.5); PLATELET COUNT 205 K/uL (130-400); RED CELL DISTRIBUTION WIDTH CV 12.6 % (11.5-14.5); RED CELL DISTRIBUTION WIDTH SD 42.6 fL (36.4-46.3); WHITE BLOOD COUNT 4.87 K/uL (4.8-10.8)
[2017-04-13 19:58] LABS: CALCIUM 8.1 mg/dl (8.5-10.1); CREATININE 0.89 mg/dl (0.60-1.20); POTASSIUM 3.5 mmol/L (3.5-5.1)
[2017-04-13] MEDS ORDERED: CIPROFLOXACIN 400MG / 200ML D5W IV STA (20:15)
--- NOTE | 2017-04-13 20:15 | EMERGENCY ROOM VISIT NOTE ---
History First contact with patient: 18:34 Chief Complaint: URINARY SYMPTOMS Stated Complaint: URINARY SYMTOMS, FEVER History of Present Illness The patient is a 36 year old female who presents to the Emergency Room with complaints of urinary symptoms and fever for the last 2-3 days. The patient did not take her temperature. She has felt left-sided flank pain. She reports a history of frequent UTIs. She denies any nausea or vomiting. No vaginal discharge. She has not taken anything for pain. The patient reports only having 1 kidney. Review of Systems 10 system review performed and negative unless noted in HPI or below Past Medical/Surgical History Medical Problems: (1) Absent kidney, congenital (2) Asthma (3) Bipolar 1 disorder, depressed, severe (4) Carpal tunnel syndrome (5) Congenital lymphedema (6) Episodic methamphetamine abuse (7) Fibromyalgia (8) Generalized anxiety disorder (9) MRSA (methicillin resistant Staphylococcus aureus) (10) resection of brain tumor (11) Thyroid disorder Surgical Problems: (1) H/O tubal ligation Family History FH: HTN (hypertension) FH: cancer FH: diabetes mellitus FH: gallbladder disease FH: heart disease FH: kidney disease FH: lung disease FH: seizures Social History Smoking Status: Current Every Day Smoker Alcohol Use: occasionally Drug Use: none Marital Status: single Housing Status: lives with roommate Occupation Status: unemployed Current/Historical Medications Scheduled Albuterol Hfa (Ventolin Hfa), 2 PUFFS INH Q4H Amphetamine-Dextroamphetamine 20MG (Adderall 20MG), 1 TAB PO BID Cholecalciferol (Vitamin D 1000 Unit), 1,000 UNITS PO DAILY Ciprofloxacin Hcl (Cipro), 500 MG PO BID Diphenhydramine Hcl (Benadryl Allergy), 25 MG PO prn ud Levothyroxine Sodium (Levothyroxine Sodium), 1 TAB PO UD Lurasidone Hcl (Latuda), 80 MG PO HS Montelukast Sod (Montelukast Sodium), 10 MG PO DAILY Omeprazole (Prilosec), 40 MG PO DAILY Valacyclovir (Valtrex), 500 MG PO DAILY Scheduled PRN Acetaminophen (Tylenol), 1,000 MG PO Q6H PRN for Pain Diazepam (Diazepam), 2 MG PO Q12 PRN for Anxiety Fluticasone Propionate (Nasal) (Flonase Allergy Relief), 2 SPRAYS FLAVIO DAILY PRN for Allergy Symptoms Furosemide (Lasix), 20 MG PO DIRECTED PRN for leg swelling Ipratropium-Albuterol (Duoneb), 1 TREATMENT INH QID PRN for SOB/Wheezing Loperamide Hcl (Imodium), 2 MG PO DAILY PRN for Diarrhea Meclizine Hcl (Meclizine Hcl), 25 MG PO TID PRN for Dizziness Ondansetron (Ondansetron Odt), 8 MG PO Q8 PRN for Nausea Polyethylene Glycol 3350 (Miralax), 17 GM PO DAILY PRN for Constipation Simethicone (Hm Gas Relief), 80-160 MG PO QID PRN for GAS Physical Exam Vital Signs Date Time Temp Pulse Resp B/P (MAP) Pulse Ox O2 Delivery O2 Flow Rate FiO2 04/13/17 22:08 78 18 104/63 97 Room Air 04/13/17 20:26 60 15 108/50 98 Room Air 04/13/17 18:13 37.2 88 17 110/64 97 Room Air Physical Exam VITALS: Vitals are noted on the nurse's note and reviewed by myself. Vital signs stable. GENERAL: 36-year-old female, in no acute distress, nondiaphoretic, well- developed well-nourished. SKIN: The skin was without rashes, erythema, edema, or bruising. HEAD: Normocephalic atraumatic. MOUTH: Mucous membranes slightly dry NECK: Supple without nuchal rigidity. No lymphadenopathy. Cervical spine is nontender. No JVD. HEART: Regular rate and rhythm without murmurs gallops or rubs. LUNGS: Clear to auscultation bilaterally without wheezes, rales or rhonchi. No accessory muscle use. ABDOMEN: Positive bowel sounds x 4.Soft, mild tenderness to palpation in the suprapubic region, without organomegaly. No guarding or rebound tenderness. Left-sided CVA tenderness noted. MUSCULOSKELETAL: No muscle atrophy, erythema, or edema noted. Strength 5/5 throughout. NEURO: Patient was alert and oriented to person place and time. Normal sensation to touch. No focal neurological deficits. Medical Decision & Procedures Laboratory Results 04/13/17 19:10 Red Blood Count 4.13, Mean Corpuscular Volume 93.0, Mean Corpuscular Hemoglobin 31.0, Mean Corpuscular Hemoglobin Concent 33.3, Mean Platelet Volume 10.1, Neutrophils (%) (Auto) 56.3, Lymphocytes (%) (Auto) 31.2, Monocytes (%) (Auto) 8.6, Eosinophils (%) (Auto) 3.1, Basophils (%) (Auto) 0.6, Neutrophils # (Auto) 2.74, Lymphocytes # (Auto) 1.52, Monocytes # (Auto) 0.42, Eosinophils # (Auto) 0.15, Basophils # (Auto) 0.03 04/13/17 19:10 Test 04/13/17 18:37 04/13/17 19:10 Urine Color DK YELLOW Urine Appearance CLOUDY (CLEAR) Urine pH 5.5 (4.5-7.5) Urine Specific [place] 1.025 (1.000-1.030) Urine Protein 1+ (NEG) Urine Glucose (UA) NEG (NEG) Urine Ketones TRACE (NEG) Urine Occult Blood 1+ (NEG) Urine Nitrite POS (NEG) Urine Bilirubin NEG (NEG) Urine Urobilinogen NEG (NEG) Urine Leukocyte Esterase LARGE (NEG) Urine WBC (Auto) >30 /hpf (0-5) Urine RBC (Auto) 5-10 /hpf (0-4) Urine Hyaline Casts (Auto) 1-5 /lpf (0-5) Urine Epithelial Cells (Auto) >30 /lpf (0-5) Urine Bacteria (Auto) 4+ (NEG) Urine Test NEG (NEG) White Blood Count 4.87 K/uL (4.8-10.8) Red Blood Count 4.13 M/uL (4.2-5.4) Hemoglobin 12.8 g/dL (12.0-16.0) Hematocrit 38.4 % (37-47) Mean Corpuscular Volume 93.0 fL (80-100) Mean Corpuscular Hemoglobin 31.0 pg (25-34) Mean Corpuscular Hemoglobin Concent 33.3 g/dl (32-36) Platelet Count 205 K/uL (130-400) Mean Platelet Volume 10.1 fL (7.4-10.4) Neutrophils (%) (Auto) 56.3 % Lymphocytes (%) (Auto) 31.2 % Monocytes (%) (Auto) 8.6 % Eosinophils (%) (Auto) 3.1 % Basophils (%) (Auto) 0.6 % Neutrophils # (Auto) 2.74 K/uL (1.4-6.5) Lymphocytes # (Auto) 1.52 K/uL (1.2-3.4) Monocytes # (Auto) 0.42 K/uL (0.11-0.59) Eosinophils # (Auto) 0.15 K/uL (0-0.5) Basophils # (Auto) 0.03 K/uL (0-0.2) RDW Standard Deviation 42.6 fL (36.4-46.3) RDW Coefficient of Variation 12.6 % (11.5-14.5) Immature Granulocyte % (Auto) 0.2 % Immature Granulocyte # (Auto) 0.01 K/uL (0.00-0.02) Anion Gap 7.0 mmol/L (3-11) Est Creatinine Clear Calc Drug Dose 96.6 ml/min Estimated GFR () 98.0 Estimated GFR (Non- 84.6 BUN/Creatinine Ratio 9.1 (10-20) Calcium Level 8.1 mg/dl (8.5-10.1) Medications Administered Medications (Trade) Dose Ordered Sig/Emir Route Start Time Stop Time Status Last Admin Dose Admin Sodium Chloride 1,000 ml @ 999 mls/hr Q1H1M ONCE IV 04/13/17 19:00 04/13/17 20:00 DC 04/13/17 19:07 999 MLS/HR Morphine Sulfate (MoRPHine SULFATE INJ) 4 mg Q1H PRN IV 04/13/17 19:00 04/27/17 18:59 04/13/17 19:10 4 MG Al Hydroxide/Mg Hydroxide (Maalox Susp) 30 ml STK-MED ONCE .ROUTE 04/13/17 19:35 04/13/17 19:36 DC 04/13/17 19:35 30 ML Lidocaine HCl (Viscous Lidocaine 2% Soln) 20 ml STK-MED ONCE .ROUTE 04/13/17 19:35 04/13/17 19:36 DC 04/13/17 19:35 20 ML Ciprofloxacin/ Dextrose (Cipro / D5W) 400 mg NOW STAT IV 04/13/17 20:15 04/13/17 20:16 DC 04/13/17 20:26 400 MG Acetaminophen/ Hydrocodone Bitart (Worth 5/325mg Home Pack) 1 homepack UD ONCE PO 04/13/17 22:00 04/13/17 22:01 DC 04/13/17 22:08 1 [facility] ED Course Patient was seen and examined Vital signs including blood pressure were reviewed medications list was verified with patient Labs were obtained, and a saline lock was established The patient was medicated with morphine, Tylenol and Zofran. She was hydrated with 1 L of normal saline. Upon reevaluation, the patient was complaining of stomach burning after receiving the morphine. She was requesting a GI cocktail which was ordered. The patient was again reassessed and sleeping in bed. I awoke her and we discussed her results. She voiced understanding. She was feeling much better. The patient was given Cipro 400 mg IV She was comfortable being discharged home I reviewed discharge instructions the patient. They voiced understanding and had no further questions. Medical Decision Differential diagnosis: UTI, pyelonephritis, ureteral stone, musculoskeletal pain, ovarian cyst, PID This patient is a 36-year-old female that presents to the emergency department with complaints of left-sided flank pain, urinary symptoms of fever. On exam, she was nontoxic in appearance. She was dehydrated. She had mild CVA tenderness on the left. Her labs reveal no leukocytosis. It does appear that she has a urinary tract infection. Her renal function is intact. Her vital signs are stable. Believe she is stable to be discharged home. Given her urinary symptoms, urinalysis and flank pain, I will treat her for a full 14 day course of antibiotics. She was encouraged to follow up closely with her primary care physician this week. She voiced understanding. She will return to the emergency department with worsening symptoms. This chart was completed in part utilizing [employer] Speech Voice Recognition software. Attempts were made to minimize the grammatical errors, random word insertions, pronoun errors and incomplete sentences. Any formal questions or concerns about the content, text or information contained within the body of this dictation should be directly addressed to the provider for clarification. Medication Reconcilliation Current Medication List: was personally reviewed by me Blood Pressure Screening Patient's blood pressure: Normal blood pressure Impression Primary Impression: Pyelonephritis Departure Information Dispostion Home / Self-Care Condition GOOD Prescriptions Ciprofloxacin Hcl (CIPRO) 500 Mg Tab 500 MG PO BID, #27 TAB Prov: Aissatou Arteaga PA-C 04/13/17 Referrals Slim Adamson M.D. (PCP) Patient Instructions My [facility], Pyelonephritis - [facility] Additional Instructions You have been evaluated in the emergency department for urinary symptoms and a fever. He does appear that you have a urinary tract infection. Please finish the entire course of antibiotics. Tylenol 650 mg every 6 hours as needed for pain Please increase fluids over the next several days It is very important for you to follow-up closely with her primary care physician. Please call tomorrow morning for a follow-up appointment. Do not hesitate to return to the emergency department with any new, worsening or concerning symptoms; especially, fever, worsening pain or vomiting
[2017-04-13] MEDS ORDERED: [UNRECOGNIZED DRUG - CODE] PO (20:49)
[2017-04-13] MEDS ORDERED: NORCO 5/325MG HOME PACK ONE (21:15)
[2017-04-13] MEDS ORDERED: VLM2 PO (21:21)
[2017-04-13] MEDS ORDERED: CIPR-255 PO (21:46)
[2017-04-13] MEDS ORDERED: NORCO 5/325MG HOME PACK PO ONE (22:00)
[2017-04-13] MEDS ORDERED: FLUT0.15 NAE (22:06)
[2017-04-13] MEDS ORDERED: LURA80TA PO (22:06)
[2017-04-13] MEDS ORDERED: MECL1TAB42 PO (22:06)
[2017-04-13 22:08] VITALS: BP 104/63; PULSE 78; O2SAT 97
[2017-04-13] MEDS ORDERED: SNG10 PO (22:46)
--- NOTE | 2017-04-15 13:43 | Pharmacy Progress Note ---
ED Pharmacist Culture FollowUp Date of Service: Apr 15, 2017. Patient was sent home with a prescription for ciprofloxacin 500 mg BID x 14 days , which should cover the E. coli growing from the patient's urine culture.
== END 2017-04-13 22:10 | disposition home or self-care (01) ==
LOC: C.EDB 18:00
DX: N12 Tubulo-interstitial nephritis, not specified as acute or chronic (principal); Q60.0 Renal agenesis, unilateral; Q82.0 Hereditary lymphedema; F31.9 Bipolar disorder, unspecified; J45.909 Unspecified asthma, uncomplicated; M79.7 Fibromyalgia; F41.1 Generalized anxiety disorder; F17.200 Nicotine dependence, unspecified, uncomplicated; Z86.14 Personal history of Methicillin resistant Staphylococcus aureus infection; Z98.51 Tubal ligation status; Z82.49 Family history of ischemic heart disease and other diseases of the circulatory system; Z83.3 Family history of diabetes mellitus; Z82.0 Family history of epilepsy and other diseases of the nervous system

== ENCOUNTER 2024-12-31 21:13 | Inpatient (IN) ==
[2024-12-31] MEDS: KETOROLAC TROMETHAMINE 15 MG/ML VIAL IV STA (22:35)
[2024-12-31] MEDS: SODIUM CHLORIDE 0.9% 1,000 ML IV ONE (22:36)
[2024-12-31] MEDS: AMPICILLIN/SULBACTAM SOD 3,000 MG/100 ML BAG IV STA (22:37)
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
[2024-12-31 22:40] LABS: Hematocrit (blood only) 38.1 % (37.0-47.0); Hemoglobin 12.7 g/dl (12.0-16.0); Immature Granulocytes # (auto) 0.02 K/uL (0.01-0.20); Immature Granulocytes % (auto) 0.2 %; Mean Corpuscular Hemoglobin 30.6 pg (25.0-34.0); Mean Corpuscular Volume 91.8 fL (80.0-100.0); Platelet Count 237 K/uL (130-400); RDW Standard Deviation 40.8 fL (36.4-46.3); Red Blood Count 4.15 M/uL (4.20-5.40); White Blood Count 8.41 K/ul (4.8-10.8)
[2024-12-31 22:58] LABS: Alanine Aminotransferase 10.0 U/L (7-52); Albumin Globulin Ratio 1.1 (0.9-2); Albumin Level 3.4 gm/dl (3.4-5.0); Alkaline Phosphatase 83.0 U/L (34-104); Anion Gap 5.0 (3-11); Bilirubin,Total 0.3 mg/dl (0.2-1.0); Blood Urea Nitrogen 8.0 mg/dl (6-23); Calcium 8.2 mg/dl (8.6-10.3); Carbon Dioxide 28.0 mmol/L (21-32); Chloride 106.0 mmol/L (98-107); Creatinine Clr Calc Pharmacy 97.5 ml/min; Globulin 3.2 gm/dl (2.5-4.0); Glucose 115.0 mg/dl (70-99(Fasting)); Potassium 3.4 mmol/L (3.5-5.1); Pregnancy Test, Serum Negative (Negative); Sodium 139.0 mmol/L (136-145); Total Protein 6.6 gm/dl (6.0-8.3)
[2024-12-31] MEDS: OPTIRAY 320 100ml IV ONE (23:30)
--- NOTE | 2025-01-01 01:00 | CT Scan Report ---
Exam(s): CT FACIAL With Contrast IV Amt: 93 ML [id number] EXAM: CT Maxillofacial With Intravenous Contrast CLINICAL HISTORY: Infection TECHNIQUE: Axial computed tomography images of the face with intravenous contrast. CTDI is 36.26 mGy and DLP is 669.97 mGy-cm. Automated exposure control was utilized for the study. A dose lowering technique was utilized adhering to the principles of ALARA. CONTRAST: Patient received 93 ML [id number] of IV contrast COMPARISON: CT facial 10/23/2018. FINDINGS: Bones/joints: No acute fracture. Soft tissues: Marked soft tissue swelling of the upper lip. Immediately adjacent to the maxilla adjacent to the right maxillary central incisor there is a 2 x 10 x 3mm abscess. This is secondary to a periapical abscess. Periapical abscesses involve the majority of the maxillary teeth. More superficially, question a developing phlegmon measuring 11 x 6 x 7 mm of the medial lip. Orbits: Unremarkable. Sinuses: Mild mucosal thickening of the maxillary sinuses. No air- fluid levels. Dental: Dental caries are noted. IMPRESSION: 1. Marked soft tissue swelling of the upper lip. Immediately adjacent to the maxilla adjacent to the right maxillary central incisor there is a 2 x 10 x 3 mm abscess. This is secondary to a periapical abscess. Periapical abscesses involve the majority of the maxillary teeth. 2. More superficially, question a developing phlegmon measuring 11 x 6 x 7 mm of the medial lip. Electronically signed by: Josephine Sotomayor MD 01/01/25 00:59 AM
[2025-01-01] MEDS: LORazepam 1 MG/1 ML SYR ED Inj Use IV STA (01:21)
[2025-01-01] MEDS: SULFAMETHOXAZOLE/TRIMETHOPRIM DS 800/160MG TAB PO ONE (01:21)
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
[2025-01-01] MEDS: POTASSIUM CHLORIDE 20 MEQ/15 ML UDC PO STA (02:37)
[2025-01-01] MEDS ORDERED: VANCOMYCIN CONSULT ACTIVE PRN (03:42)
[2025-01-01] MEDS ORDERED: VANCOMYCIN HCL / NSS 1,000 MG/270 ML BAG IV SCH (03:42)
[2025-01-01] MEDS ORDERED: POLYETHYLENE (MIRALAX) 17 GM PACK PO PRN (03:42)
[2025-01-01] MEDS ORDERED: HYDROmorphone INJ 0.5 MG/0.5 ML SYR IV PRN (03:42)
[2025-01-01] MEDS: SODIUM CHLORIDE 0.9% 1,000 ML IV SCH (04:17)
[2025-01-01] MEDS: AMPICILLIN/SULBACTAM SOD 3,000 MG/100 ML BAG IV SCH (04:17)
[2025-01-01] MEDS: VANCOMYCIN HCL 2,000 MG in SODIUM CHLORIDE 0.9% 500 ML IV STA (04:55)
[2025-01-01] MEDS: KETOROLAC TROMETHAMINE 15 MG/ML VIAL IV PRN (08:11)
[2025-01-01 08:45] LABS: Hematocrit (blood only) 35.8 % (37.0-47.0); Hemoglobin 12.2 g/dl (12.0-16.0); Immature Granulocytes # (auto) 0.02 K/uL (0.01-0.20); Immature Granulocytes % (auto) 0.3 %; Mean Corpuscular Hemoglobin 31.4 pg (25.0-34.0); Mean Corpuscular Volume 92.0 fL (80.0-100.0); Platelet Count 249 K/uL (130-400); RDW Standard Deviation 40.0 fL (36.4-46.3); Red Blood Count 3.89 M/uL (4.20-5.40); White Blood Count 7.40 K/ul (4.8-10.8)
[2025-01-01 08:52] LABS: Hemoglobin A1C 5.3 % (4.5-5.6)
[2025-01-01 09:05] LABS: Anion Gap 5.0 (3-11); Blood Urea Nitrogen 5.0 mg/dl (6-23); Calcium 7.9 mg/dl (8.6-10.3); Carbon Dioxide 26.0 mmol/L (21-32); Chloride 108.0 mmol/L (98-107); Creatinine Clr Calc Pharmacy 105.7 ml/min; Glucose 89.0 mg/dl (70-99(Fasting)); Magnesium 1.7 mg/dl (1.7-2.4); Potassium 3.9 mmol/L (3.5-5.1); Sodium 139.0 mmol/L (136-145)
[2025-01-01 09:20] LABS: Thyroid Stimulating Hormone 9.332 uIu/ml (0.300-4.500)
[2025-01-01] MEDS: POTASSIUM CHLORIDE / WTR 10 MEQ/100 ML PLCT IV SCH (09:23)
[2025-01-01 09:55] LABS: T4 Free Thyroxine 0.64 ng/dl (0.61-1.60)
--- NOTE | 2025-01-01 10:31 | Pharmacy Report ---
Pharmacy PK ABX Note - Date of Service January 01, 2025 - Assessment and Plan Assessment 44 year old F receiving UNASYN/VANCOMYCIN for treatment of dental abscess. Pertinent microbiologic data includes: previous MRSA history. No microbiology from current visit. Plan Vancomycin * Loading dose: 2000 mg IV x 1 * Maintenance dose: 1250 mg IV every 12 hours * Regimen is predicted to achieve target AUC/GORGE of 400-600 mg/L.hr * Random level ordered for 01/03 @ 1200 Pharmacy will continue to follow and will adjust dose/frequency as necessary. Thank you. Pharmacy has transitioned to AUC monitoring for vancomycin. AUC/GORGE is the preferred PK/PD target and is associated with decreased risk of nephrotoxicity compared to traditional trough targets.
--- NOTE | 2025-01-01 10:36 | Oral/Maxillofacial Consult ---
Date of Consultation January 01, 2025 Assessment & Plan (1) Dental infection: (2) Cellulitis and abscess of face: (3) Torus mandibularis: (4) Exostosis: History of Present Illness Attending Physician: Inocencio Galo MD History of Present Illness Oral Maxillofacial Surgery Exam Present Complaint: I have pain/swelling/drainage from my infected upper front and upper left molar teeth. Symptoms have been ongoing for a while. Swelling and intense pain started yesterday Came to ER last night admitted for facial infection 44-year-old female with past med history significant for hypothyroidism, hyperinsulinemia, mild persistent asthma, single kidney, renal agenesis, history of positive urine drug screen, fibromyalgia, depression, tobacco use disorder, bipolar disorder, marijuana use, general anxiety disorder, overdose of tricyclic antidepressant, and currently states not taking any medications comes in with dental abscess. Patient noticed pain in the mouth today. Denies any fevers. Having difficulty swallowing because of pain. No headache. No runny nose or sore throat. No chest pain. No shortness of breath. No abdominal pain. No rmal bowel and bladder movements. Hemodynamics are okay. Oral Exam: Finding--there is gross periodontal and dental abscess associated with teeth numbers 7,8,9,10,13,14,15,18 These abscessed teeth are associated with gross periodontal disease. There is infection and drainage coming from the indicated teeth. The patient is in intense pain. There is swelling of the lip in the mucobuccal fold of the whole maxilla. There is swelling and discomfort on the lower left fractured roots of tooth #18. There is a underlying periodontal abscess associated with this tooth as well. The patient will ultimately need removal of all of the upper teeth alveoplasty's and reduction of bony exostoses. She will then need to be fitted for an upper denture. I explained to the patient that my role would be to alleviate the acute infection. That means removing the upper teeth as indicated as well as the lower 18. I will not be doing any type of alveoplasty unless absolutely necessary to remove any bony irregularities. The exostosis will need to be removed once the tissues have healed and the acute infection is under control. I explained to her that this will need to be done by a dentist or oral surgeon of her choosing once the acute infection is resolved. Imaging: I reviewed the CT scan and there are no abnormal findings other then the infe cted carious and fractured teeth. The TMJ are well positioned and no evidence of bony pathology. The sinus, supporting bone all WNL The following teeth will need extraction and that would be tooth #7 8 9 10 13 14 15 and 18 In the future the remaining maxillary teeth may need to be removed in addition she has very large facial exostoses of both the upper and lower jaw as well as some lingual viraj which will need to be addressed in the future. Exam(s): CT FACIAL With Contrast IV Amt: 93 ML [id number] EXAM: CT Maxillofacial With Intravenous Contrast CLINICAL HISTORY: Infection FINDINGS: Bones/joints: No acute fracture. Orbits: Unremarkable. Sinuses: Mild mucosal thickening of the maxillary sinuses. No air- fluid levels. Soft tissues: Marked soft tissue swelling of the upper lip. Immediately adjacent to the maxilla adjacent to the right maxillary central incisor there is a 2 x 10 x 3mm abscess. This is secondary to a periapical abscess. Periapical abscesses involve the majority of the maxillary teeth. More superficially, question a developing phlegmon measuring 11 x 6 x 7 mm of the medial lip. Dental: Dental caries are noted. IMPRESSION: 1. Marked soft tissue swelling of the upper lip. Immediately adjacent to the maxilla adjacent to the right maxillary central incisor there is a 2 x 10 x 3 mm abscess. This is secondary to a periapical abscess. Periapical abscesses involve the majority of the maxillary teeth. 2. More superficially, question a developing phlegmon measuring 11 x 6 x 7 mm of the medial lip. Soft tissue: There is gross swelling of the vestibular area in the anterior and left regions of the maxilla with a periodontal abscess and associated vestibular space swelling lower left side. The floor of the mouth, tongue, hard/soft palate, posterior pharyngeal area all with in normal limits, no pathology or abnormal findings noted. No lesions noted that require follow up or Bx. Oral Care: Overall oral care is very poor Occlusion: Class 1 TMJ exam: No pop, clicking, pain, good ROM, No history of TMJ injury or dysfunction Periodontal exam: Significant periodontal disease with grossly inflamed tissues the tissues are extremely boggy and purulent drainage is noted from all of the areas described above. Many of the teeth are very loose and periodontally grossly infected. There is facial abscess secondary to the infection this is supported by the CT scan Head/Neck exam: Neck is supple, FROM, Able to extend and flex neck w/o difficulty, no masses, no abnormalities, no airway issues, no evidence of sleep apnea. Treatment Plan: Set up with general anesthesia in hospital due to complexity of the procedure Patient is n.p.o. she is in tremendous pain and her swelling seems to be getting worse. She has complained to the nursing staff that her lip is getting tighter and it is more difficult to swallow. We will be taking her to the operating room early this afternoon for drainage of the vestibular space infections of the maxilla and extraction of the teeth indicated above. I reviewed the treatment plan and consent with the patient I also explained the limitations of what I am capable of doing given the acute infection. I explained to her that already goal today is to alleviate the infection and remove the teeth that are the most problematic. There is a lot of other dental treatment that will need to be done at which she will need to seek a independent oral surgeon or dentist for ongoing care once she is discharged from my office once the infection is completely resolved. She understands that I am not able to do the continuation of her care such as making her dentures or doing further dental work as this will need to be done by a another oral surgeon or dentist Understanding was expressed. Time was given for questions regarding the surgery, risks and post op care. Discussed alternative to treatment--procedure as planned, Do not do surgery The following teeth are decayed and fractured and removal is indicated VERNA: See teeth numbers and treatment plan listed above Risks discussed: Bleeding,Pain,swelling,infection, dry socket, delayed healing, nerve injury to face,lips,tongue,chin area which could be permanent (rare). TMJ, jaw stiffness, change in bite (rare), ear pain (referred). Sinus problems like fistula or infection. Need to leave a small root fragment in place to avoid injury to nerve or sinus. Relationship of wisdom teeth to nerve/sinus and risk of jaw fracture. Need for future dental treatment such as extraction of teeth denture constructions alveoplasty and removal of excessive viraj and exostoses Surgery to be set up today in the operating room under general anesthesia Once the infected teeth are removed I will evaluate her tomorrow morning and hopefully she can be discharged on oral antibiotics and follow-up in my office until complete resolution of the infection Allergies Allergy/AdvReac Type Severity Reaction Status Date / Time metformin Allergy Severe EDEMA OF Verified 01/01/25 00:23 AIRWAY, Breathing difficulty,dizziness. salmon oil Allergy Severe anaphylaxis Verified 01/01/25 00:23 tuna oil Allergy Severe SOB/HIVES Verified 01/01/25 00:23 gabapentin AdvReac Intermediate FEELS OUT Verified 01/01/25 00:23 OF IT gadobutrol AdvReac Intermediate GI SYMPTOMS Verified 01/01/25 00:23 morphine AdvReac Intermediate Abdominal Verified 01/01/25 00:23 Pain Home Medications Medication Instructions Recorded Confirmed Type No Known Home Medications 01/01/25 01/01/25 History Patient History Family History Other Cancer Diabetes Heart disease Hypertension Lung disease Seizures Social History Smoking Status: Current every day smoker Tobacco Type: Cigarettes Cigarettes Per Day: half pack; Second Hand Exposure: Yes; Do You Dip or Chew Tobacco: No; Tobacco Cessation Education Requested by Patient: No Hx Alcohol Use: No Hx Substance Use: No Preferred Language: Macedonian Communication Ability: Effective 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: No Beliefs That Will Affect Care: None marital status: Single Current Living Situation: Significant Other Current Living Situation Comment: lives with boyfriend current occupational status: unemployed Other Information That Helps Us Care for You: No Feels Safe at Home: Yes Safety Concerns: Feels Safe At This Time Assistive Devices: None Results & Data Vital Signs (Past 12 Hours) Vital Signs Temp Pulse Pulse Resp BP Pulse Ox O2 Del Method 01/01/25 08:14 37.0 C 79 16 132/90 100 Room Air 01/01/25 03:20 37.5 C 78 16 119/81 99 Room Air 01/01/25 01:32 68 01/01/25 01:01 74 16 144/97 H 98 Room Air 12/31/24 23:00 77 16 139/84 98 Room Air PG Care Time/CCT Total # of Minutes Spent Total Time Spent with Patient: Total time spent is greater than 50% in coordination of care (as documented) at patient's floor/unit and/or counseling patient: Coding Level of Care Code 21664 IN/OBS CONSULT LVL 2,35M Diagnoses Dental infection K04.7 Cellulitis and abscess of face L03.211; L02.01 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
[2025-01-01] MEDS ORDERED: PROPOFOL IV EMULSION 10 MG/ML 20 ML VIAL IV ONE (10:42)
[2025-01-01] MEDS ORDERED: ONDANSETRON INJ 2 MG/ML 2 ML VIAL ONE (10:42)
[2025-01-01] MEDS ORDERED: MIDAZOLAM HCL 1 MG/ML 2ML VIAL ONE (10:42)
[2025-01-01] MEDS ORDERED: LIDOCAINE 2% 2 ML VIAL/AMP(20MG/ML) INFIL ONE (10:42)
[2025-01-01] MEDS ORDERED: DEXAMETHASONE SOD INJ 4 MG/ML VIAL ONE (10:42)
--- NOTE | 2025-01-01 10:43 | Hospitalist Progress Note ---
Date of Service January 01, 2025 Assessment & Plan (1) Dental infection: Plan: 44-year-old female with past med history significant for hypothyroidism, hyperinsulinemia, mild persistent asthma, single kidney, renal agenesis, history of positive urine drug screen, fibromyalgia, depression, tobacco use disorder, bipolar disorder, marijuana use, general anxiety disorder, overdose of tricyclic antidepressant, and currently states not taking any medications comes in with dental abscess. Patient noticed pain in the mouth today. Denies any fevers. Having difficulty swallowing because of pain. No headache. No runny nose or sore throat. No chest pain. No shortness of breath. No abdominal pain. Normal bowel and bladder movements. Hemodynamics are okay. Dental infection Dental abscess,Abscess around lip region Started onIV Unasyn and later on vancomycin was added due to history of MRSA Will check MRSA swab and if negative will DC vancomycin Remains n.p.o. and the pain is controlled with current intravenous Toradol Appreciate orofacial surgery input and recommendation Will have facial abscess incision and drainage today History of hypothyroidism Not taking medications Will follow thyroid profile- TSH is minimally high at 99.332 but free T4 is normal Likely to need replacement down the line advised to have a repeat checkup TSH in about 6 weeks History of hyperinsulinemia Will follow HbA1c levels- hemoglobin A1c is 5.3 History of asthma Will monitor History of bipolar disorder Generalized anxiety disorder Currently not on medications DVT prophylaxis SCDs Disposition Medical floor Full code Admission and Anticipated Discharge Date Admission Date: January 01, 2025 Subjective 01/01/2025 The patient was seen and examined in medical floor She was admitted with left-sided dental abscess and was complaining of more pain this morning Her pain is better with intravenous Toradol Denies any fever and/or chills, no nausea no vomiting Review of Systems Review of Systems: All systems reviewed and are unremarkable except as noted below Physical Exam Physical Exam: Lying in bed without any acute distress except some pain in the left side of the face Constitutional: well developed, well nourished, + ill appearing and + obese Eyes: PERRL, conjunctivae normal, anicteric sclerae ENMT: Mouth: + oropharynx abnormality ( swelling of the left side of the face with tenderness) Neck: trachea midline, no thyromegaly Respiratory: no respiratory distress Auscultation: lungs clear to auscultation bilaterally Cardiovascular: Rate/Rhythm: regular rate and regular rhythm; not tachycardic Heart Sounds: normal S1 and normal S2; no murmur Extremities: no edema Gastrointestinal (Abdomen): Inspection/Auscultation: normal bowel sounds; abdomen not distended Percussion/Palpation: abdomen soft; abdomen nontender Musculoskeletal: No acute arthritis involving any of the joint Neurologic: normal touch/pain/proprioception and moves all extremities; no focal motor deficits Psychiatric: A+Ox3, euthymic affect Lymphatic: no cervical or axillary lymphadenopathy Results & Data Results & Data Vital Signs (Past 12 Hours) Vital Signs Temp Pulse Pulse Resp BP Pulse Ox O2 Del Method 01/01/25 08:14 37.0 C 79 16 132/90 100 Room Air 01/01/25 03:20 37.5 C 78 16 119/81 99 Room Air 01/01/25 01:32 68 01/01/25 01:01 74 16 144/97 H 98 Room Air 12/31/24 23:00 77 16 139/84 98 Room Air Laboratory Results Short CBC 12/31/24 01/01/25 Range/Units 22:19 08:13 WBC 8.41 7.40 (4.8-10.8) K/ul Hgb 12.7 12.2 (12.0-16.0) g/dl Hct 38.1 35.8 L (37.0-47.0) % Plt Count 237 249 (130-400) K/uL BMP 12/31/24 01/01/25 22:19 08:13 Sodium 139 139 Potassium 3.4 L 3.9 Chloride 106 108 H Carbon Dioxide 28 26 BUN 8 5 L Creatinine 0.83 0.77 Glucose 115 H 89 Calcium 8.2 L 7.9 L Liver Function 12/31/24 Range/Units 22:19 Total Bilirubin 0.3 (0.2-1.0) mg/dl AST 12 L (13-39) U/L ALT 10 (7-52) U/L Alkaline Phosphatase 83 (34-104) U/L Albumin 3.4 (3.4-5.0) gm/dl Medications Administered Current Inpatient Medications Acetaminophen (Acetaminophen 325 Mg Tab) 650 mg PO Q4H PRN PRN Reason: pain/fever Stop: 01/31/25 03:41 Hydromorphone HCl (Hydromorphone Inj 0.5 Mg/0.5 Ml Syr) 0.25 mg IV Q6H PRN PRN Reason: Mod-Sev Pain (Scale 4-10) Stop: 01/15/25 03:41 Sodium Chloride (Nss) 1,000 mls @ 125 mls/hr IV .Q8H [facility] Stop: 01/04/25 03:41 Last Admin: 01/01/25 04:17 Dose: 125 mls/hr Ampicillin Sodium/Sulbactam Sodium (Unasyn) 3,000 mg in 100 mls @ 200 mls/hr IV Q6H [facility] Stop: 01/08/25 03:59 Last Admin: 01/01/25 09:40 Dose: 200 mls/hr Vancomycin HCl 1,250 mg/ (Sodium Chloride) 275 mls @ 200 mls/hr IV Q12H [facility] Stop: 01/08/25 15:59 Ketorolac Tromethamine (Ketorolac Tromethamine 15 Mg/Ml Vial) 15 mg IV Q6H PRN PRN Reason: Pain Stop: 01/06/25 07:25 Last Admin: 01/01/25 08:11 Dose: 15 mg Miscellaneous Information (Vancomycin Consult Active) 1 each N/A UD PRN PRN Reason: Consult Stop: 01/31/25 03:41 Polyethylene Glycol (Polyethylene (Miralax) 17 Gm Pack) 17 gm PO DAILY PRN PRN Reason: Constipation Stop: 01/31/25 03:41
[2025-01-01] MEDS ORDERED: ROCURONIUM BROMIDE 10 MG/ML 5 ML VIAL IV ONE (11:02)
--- NOTE | 2025-01-01 11:14 | Anesthesiology Consultation ---
Date of Service January 01, 2025 Assessment & Plan Chart Review Chart Review: Acceptable Risk for Surgery and Patient NOT seen in Pre Admission Testing Consults Requested none ASA [id number] Proposed Anesthesia Anesthesia Type: General History Surgery Operation Date: 01/01/25 12:00 Proposed Procedures p Facial Abcess Incision and Drainage, Removal Teeth - Pedro Mckinney Ata, DMD Height/Weight Height: 5 ft 4 in Weight: 93.8 kg Allergies Allergy/AdvReac Type Severity Reaction Status Date / Time metformin Allergy Severe EDEMA OF Verified 01/01/25 00:23 AIRWAY, Breathing difficulty,dizziness. salmon oil Allergy Severe anaphylaxis Verified 01/01/25 00:23 tuna oil Allergy Severe SOB/HIVES Verified 01/01/25 00:23 gabapentin AdvReac Intermediate FEELS OUT Verified 01/01/25 00:23 OF IT gadobutrol AdvReac Intermediate GI SYMPTOMS Verified 01/01/25 00:23 morphine AdvReac Intermediate Abdominal Verified 01/01/25 00:23 Pain Medications Home Medications Medication Instructions Recorded Confirmed Last Taken No Known Home Medications 01/01/25 01/01/25 Unknown Active Medications Generic Name Dose Route Start Last Admin Trade Name Freq PRN Reason Stop Dose Admin Sodium Chloride 1,000 mls @ 125 mls/hr 01/01/25 03:42 01/01/25 04:17 Nss IV 01/04/25 03:41 125 mls/hr .Q8H [facility] Administration Ampicillin Sodium/Sulbactam Sodium 3,000 mg in 100 mls @ 200 mls/hr 01/01/25 04:00 01/01/25 10:10 Unasyn IV 01/08/25 03:59 Infused Q6H [facility] Infusion Ketorolac Tromethamine 15 mg 01/01/25 07:26 01/01/25 08:11 Ketorolac Tromethamine 15 Mg/Ml Vial IV 01/06/25 07:25 15 mg Q6H PRN Administration Pain Past Medical History Obese Anemia Hx/o drug abuse-marijuana,methamphetamine,opioids congenitally absent left kidney Hx/o kidney stones Asthma Bipolar Fibromyalgia anxiety/depression hypothyroid + tobacco Gerd Hx/o MRSA Exercise / Class Metabolic Activity II 4-5 Yardwork/Stairs/Walk up hill Past Family History Family History Other Cancer Diabetes Heart disease Hypertension Lung disease Seizures Past Surgical History S/P BLTL S/P resection of Brain Tumor Past Anesthesia History No Hx of Anesthesia Complications and No Family Hx of Anesthesia Complications History of PONV No Hx of PONV and No Hx of Motion Sickness Social History Smoking Status: Current every day smoker Smoking cigarettes per day: half pack Do You Dip or Chew Tobacco: No Hx Alcohol Use: No Hx Substance Use: No substance use type: marijuana Physical Exam Vital Signs Last Vital Signs Temp 37.0 C 01/01/25 08:14 Pulse 79 01/01/25 08:14 Resp 16 01/01/25 08:14 BP 132/90 01/01/25 08:14 Pulse Ox 100 01/01/25 08:14 O2 Del Method Room Air 01/01/25 08:14 Testing Laboratory Results 01/01/25 08:13 01/01/25 08:13 Hemoglobin A1c 5.3 % (4.5-5.6) 01/01/25 08:13 Electrocardiogram Date: 09/02/22 Findings: + SB @ (@ 58 w/ SA)
[2025-01-01] MEDS ORDERED: FLUMAZENIL 0.1 MG/1 ML 10 ML VIAL IV PRN (11:55)
[2025-01-01] MEDS ORDERED: ATROPINE SULFATE 0.1 MG/ML 10ML SYR IV PRN (11:55)
[2025-01-01] MEDS ORDERED: ONDANSETRON INJ 2 MG/ML 2 ML VIAL IV PRN (11:55)
[2025-01-01] MEDS ORDERED: NALOXONE HCL 0.4 MG/1 ML VIAL/CARP IV PRN (11:55)
[2025-01-01] MEDS ORDERED: PROMETHAZINE HCL 6.25 MG in SODIUM CHLORIDE 0.9% 50 ML IV PRN (11:55)
[2025-01-01] MEDS: CHLORHEXIDINE GLUCONATE 0.12% 480 ML MT ONE (12:11)
[2025-01-01] MEDS: BUPIVACAINE/EPINEPHRINE 0.5% 1:200,000 1.8 ML CARP ONE (12:30)
[2025-01-01] MEDS ORDERED: SUGAMMADEX SODIUM 200 MG/2 ML VIAL IV ONE (12:41)
--- NOTE | 2025-01-01 13:18 | Operative Report ---
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 Estimated Blood Loss 4 Findings Consistent with Post-Op Diagnosis grossly infected upper lip and left side of the face Specimens none Drains none Anesthesia Type General Complications none Indications grossly infected upper lip and left side of the face associated with periodontal involed teeth Description of Procedure Pre-op= Facial infection and abscessed teeth Procedure Incision and Drainage of Upper Lip and Mucobuccal Fold, Extraction of Teeth #7,8,9,10,12,14,15,&19 ICD 10 K12.2 , L03.211 CPT 97835 vestibular space of left maxilla D7140 x 8 for teeth #7,8,9,10,12,14,15 D7210 x 1 for tooth # 19 D7310 x 1 upper left Alveoplasty upper left Once cleared for surgery general anesthesia was achieved, the eyes were protected by the anesthesia dept criteria.. A time out was take for patient ID, antibiotics, equipment and position verification once all agreed the procedure began. Local anesthesia was given into each area using Marcaine with a vasoconstrictor ( 1.8 ml per site). A throat pack was placed after the oral cavity was irrigated with saline. Once a surgical level of anesthesia was obtained and the local anesthesia was given time for the blocks the surgery was started. I turned my attention to the upper left lip infection/ Mucobuccal fold and upper teeth ICD 10 K12.2 , L03.211 CPT 17253 vestibular space of left maxilla Once cleared for surgery general anesthesia was achieved, the eyes were protected by the anesthesia dept criteria. A time out was take for patient ID, antibiotics, equipment and position verification once all agreed the procedure began. Local anesthesia using Marcaine with a vasoconstrictor ( 1.8 ml per site) given into left posterior maxilla and anterior maxilla A throat pack was placed after the oral cavity was irrigated with saline. Once a surgical level of anesthesia was obtained and the local anesthesia was given time for the blocks the surgery was started. I turned my attention to the infection which was located in the in the left vestibule, left tuberosity area, Infraorbital fossa area and anterior maxilla(base of the nose and upper lip See CT scan report-for infection location Incision and Drainage CPT 41323 vestibular space of left maxilla Using a 15 blade an incision was made in the posterior aspect of the vestibular area upper left side. Once the incision was made a lot of pus extruded from the site. A curved hemostat was carefully placed superior into the infected space to drain the subperiosteal space. To gain access to the pocket of pus in the upper lip another incision was made in the vestibule. This allowed further drainage to escape. I palpated the face and cheek area and no further drainage was expressed. The area was irrigated with at least 100 ml of NS solution. I now removed the abscessed teeth which completed the I&D process Upper infected teeth #7,8,9,10,12,14,15 + alveoplasty upper left D7140 x 8 and D7310 An Incision was made over the tuberosity. The full thickness flap was reflected , the involved teeth were visualized, the posterior teeth were close to the sinus and removed with a dental upper forceps and an 81 elevator. All the sockets were curated clean As the result of the acute infection and bony exostosis the bony was very irregular. The bony margins and exostosis were trimmed, smoothed via a standard alveoplasty method with a drill then closed with a 2-0 chromic There was no sinus involvement. Lower # 19 infected roots D7210 X 1 for # 19 The full thick Muco-periosteal flap was made on the external oblique ridge to avoid the lingual nerve. The flap was reflected to expose the retained roots of # 19. The drill with a round bur was used to remove bone, a fissure bur was used to split the tooth.The lingual plate was protected. The tooth was removed with a 301 elevator, the nerve was intact, there was no bleeding. The bone was trimmed, smoothed and the flap was closed with 2-0 chromic sutures. When all the teeth were removed and the I&D completed I removed the throat pack and suctioned the throat. A left gauze pressure dressings was placed. All instrument and sponge count was correct. The patient was allowed to awake from the anesthesia. Once full awake the anesthesia tube was removed and the patient was taken to the recovery room with all vital sign stable. The patient tolerated the surgery very well. I will follow the patient in my office, Rx and instructions will be given upon discharge. I attest to the content of the Intraoperative Record and any orders documented therein. Any exceptions are noted below.
--- NOTE | 2025-01-01 14:14 | Anesthesiology Progress Note ---
Date of Service January 01, 2025 Anesthesia Post Procedure Vital Signs Vital Signs: Temp Pulse Pulse Pulse Resp BP BP 01/01/25 13:45 76 21 132/89 01/01/25 13:30 36.7 C 86 18 145/92 H 01/01/25 13:20 85 14 146/97 H 01/01/25 13:10 90 15 128/89 01/01/25 13:00 101 H 20 144/95 H 01/01/25 12:53 36 C L 100 H 15 121/88 01/01/25 08:14 37.0 C 79 16 01/01/25 03:20 37.5 C 78 16 01/01/25 01:32 68 01/01/25 01:01 74 16 12/31/24 23:00 77 16 12/31/24 21:35 70 12/31/24 21:31 36.7 C 69 20 12/31/24 21:19 36.6 C 84 19 142/105 H BP Pulse Ox O2 Del Method O2 Flow Rate 01/01/25 13:45 98 Room Air 01/01/25 13:30 96 Room Air 01/01/25 13:20 94 Room Air 01/01/25 13:10 95 Room Air 01/01/25 13:00 96 Room Air 01/01/25 12:53 98 Oxymask 7 01/01/25 08:14 132/90 100 Room Air 01/01/25 03:20 119/81 99 Room Air 01/01/25 01:32 01/01/25 01:01 144/97 H 98 Room Air 12/31/24 23:00 139/84 98 Room Air 12/31/24 21:35 12/31/24 21:31 137/75 99 Room Air 12/31/24 21:19 99 Room Air Pain Intensity Right Face: Pain Intensity: 8 Upper Mouth: Pain Intensity: 9 Throat: Pain Intensity: 9 Transfer of Care Handoff Completed per policy Notes Mental Status: alert / awake / arousable Patient Amnestic to Procedure: Yes Nausea / Vomiting: adequately controlled Pain: adequately controlled Airway Patency, RR, SpO2: stable & adequate BP & HR: stable & adequate Hydration State: stable & adequate Anesthetic Complications: no major complications apparent
[2025-01-01] MEDS: CHLORASEPTIC (PHENOL) 1.4% SOLN 180 ML BTL MT PRN (15:18)
[2025-01-01] MEDS: ACETAMINOPHEN 325 MG TAB PO PRN (15:58)
[2025-01-01] MEDS: VANCOMYCIN HCL 1,250 MG in SODIUM CHLORIDE 0.9% 250 ML IV SCH (16:57)
[2025-01-02 07:07] VITALS: BP 102/70; PULSE 72; RESP 14; TEMP 98.6; O2SAT 100
--- NOTE | 2025-01-02 10:31 | Hospitalist Progress Note ---
Date of Service January 02, 2025 Assessment & Plan (1) Dental infection: Plan: 44-year-old female with past med history significant for hypothyroidism, hyperinsulinemia, mild persistent asthma, single kidney, renal agenesis, history of positive urine drug screen, fibromyalgia, depression, tobacco use disorder, bipolar disorder, marijuana use, general anxiety disorder, overdose of tricyclic antidepressant, and currently states not taking any medications comes in with dental abscess. Patient noticed pain in the mouth today. Denies any fevers. Having difficulty swallowing because of pain. No headache. No runny nose or sore throat. No chest pain. No shortness of breath. No abdominal pain. Normal bowel and bladder movements. Hemodynamics are okay. Dental infection Dental abscess,Abscess around lip region Started onIV Unasyn and later on vancomycin was added due to history of MRSA Will check MRSA swab and if negative will DC vancomycin Remains n.p.o. and the pain is controlled with current intravenous Toradol Appreciate orofacial surgery input and recommendation Will have facial abscess incision and drainage today Has been feeling better following the dental procedure Tolerating regular diet without any fever and/or chills She will be discharged home this afternoon on oral antibiotic History of hypothyroidism Not taking medications Will follow thyroid profile- TSH is minimally high at 99.332 but free T4 is normal Likely to need replacement down the line advised to have a repeat checkup TSH in about 6 weeks History of hyperinsulinemia Will follow HbA1c levels- hemoglobin A1c is 5.3 History of asthma Will monitor History of bipolar disorder Generalized anxiety disorder Currently not on medications DVT prophylaxis SCDs Disposition Medical floor Full code Admission and Anticipated Discharge Date Admission Date: January 01, 2025 Subjective 01/01/2025 The patient was seen and examined in medical floor She was admitted with left-sided dental abscess and was complaining of more pain this morning Her pain is better with intravenous Toradol Denies any fever and/or chills, no nausea no vomiting 01/02/2025 The patient was seen and examined in medical floor She has been feeling much better following the dental procedure No fever and/or chills and she has been tolerating regular diet She will be discharged home this afternoon Review of Systems Review of Systems: All systems reviewed and are unremarkable except as noted below Physical Exam Physical Exam: Lying in bed without any acute distress except some pain in the left side of the face Constitutional: well developed, well nourished, + ill appearing and + obese Eyes: PERRL, conjunctivae normal, anicteric sclerae ENMT: Mouth: + oropharynx abnormality ( swelling of the left side of the face with tenderness) Neck: trachea midline, no thyromegaly Respiratory: no respiratory distress Auscultation: lungs clear to auscultation bilaterally Cardiovascular: Rate/Rhythm: regular rate and regular rhythm; not tachycardic Heart Sounds: normal S1 and normal S2; no murmur Extremities: no edema Gastrointestinal (Abdomen): Inspection/Auscultation: normal bowel sounds; a bdomen not distended Percussion/Palpation: abdomen soft; abdomen nontender Musculoskeletal: No acute arthritis involving any of the joint Neurologic: normal touch/pain/proprioception and moves all extremities; no focal motor deficits Psychiatric: A+Ox3, euthymic affect Lymphatic: no cervical or axillary lymphadenopathy Results & Data Results & Data Vital Signs (Past 12 Hours) Vital Signs Temp Pulse Resp BP Pulse Ox O2 Del Method 01/02/25 07:04 37.0 C 72 14 102/70 100 Room Air 01/02/25 05:33 36.9 C 73 20 106/62 99 Room Air 01/02/25 01:03 36.8 C 54 L 17 109/68 97 Room Air Medications Administered Current Inpatient Medications Acetaminophen (Acetaminophen 325 Mg Tab) 650 mg PO Q4H PRN PRN Reason: pain/fever Stop: 01/31/25 03:41 Last Admin: 01/01/25 15:58 Dose: 650 mg Hydromorphone HCl (Hydromorphone Inj 0.5 Mg/0.5 Ml Syr) 0.25 mg IV Q6H PRN PRN Reason: Mod-Sev Pain (Scale 4-10) Stop: 01/15/25 03:41 Sodium Chloride (Nss) 1,000 mls @ 125 mls/hr IV .Q8H [facility] Stop: 01/04/25 03:41 Last Infusion: 01/02/25 06:35 Dose: 125 mls/hr Ampicillin Sodium/Sulbactam Sodium (Unasyn) 3,000 mg in 100 mls @ 200 mls/hr IV Q6H [facility] Stop: 01/08/25 03:59 Last Infusion: 01/02/25 09:48 Dose: Infused Ketorolac Tromethamine (Ketorolac Tromethamine 15 Mg/Ml Vial) 15 mg IV Q6H PRN PRN Reason: Pain Stop: 01/06/25 07:25 Last Admin: 01/02/25 04:23 Dose: 15 mg Miscellaneous Information (Vancomycin Consult Active) 1 each N/A UD PRN PRN Reason: Consult Stop: 01/31/25 03:41 Phenol (Chloraseptic (Phenol) 1.4% Soln 180 Ml Btl) 1 sprays MT PRN PRN PRN Reason: Sore Throat Stop: 01/31/25 14:35 Last Admin: 01/02/25 05:21 Dose: 1 sprays Polyethylene Glycol (Polyethylene (Miralax) 17 Gm Pack) 17 gm PO DAILY PRN PRN Reason: Constipation Stop: 01/31/25 03:41
--- NOTE | 2025-01-02 11:22 | Progress Note ---
Date of Service January 02, 2025 Assessment & Plan Admission and Anticipated Discharge Date Admission Date: January 01, 2025 Subjective Post Op infection evaluation 24 hours The infected area has resolved very well. Swelling is almost gone and the tissue is getting back to normal in size and texture. No further drainage is noted. Infection has responded very well to the antibiotics, extractions and the I and D. I requested that the patient continue with massage, heat and wound care. At this time the area is well healed and responded well to treatment, OK for discharge on oral antibiotics and OTC pain Meds RTC - she has my card to arrange a follow up in 10-14 days Results & Data Vital Signs (Past 12 Hours) Vital Signs Temp Pulse Resp BP Pulse Ox O2 Del Method 01/02/25 07:04 37.0 C 72 14 102/70 100 Room Air 01/02/25 05:33 36.9 C 73 20 106/62 99 Room Air 01/02/25 01:03 36.8 C 54 L 17 109/68 97 Room Air PG Care Time/CCT Total # of Minutes Spent Total Time Spent with Patient: Total time spent is greater than 50% in coordination of care (as documented) at patient's floor/unit and/or counseling patient: Coding Level of Care Code None
--- NOTE | 2025-01-02 14:54 | Discharge Summary ---
Date of Service January 02, 2025 Admission HPI Per Admitting Provider 44-year-old female with past med history significant for hypothyroidism, hyperinsulinemia, mild persistent asthma, single kidney, renal agenesis, history of positive urine drug screen, fibromyalgia, depression, tobacco use disorder, bipolar disorder, marijuana use, general anxiety disorder, overdose of tricyclic antidepressant, and currently states not taking any medications comes in with dental abscess. Patient noticed pain in the mouth today. Denies any fevers. Having difficulty swallowing because of pain. No headache. No runny nose or sore throat. No chest pain. No shortness of breath. No abdominal pain. Normal bowel and bladder movements. Hemodynamics are okay. Past medical history. As mentioned above. Past surgical history. Bilateral carpal tunnel surgery. Dental surgery. Laparoscopic cholecystectomy. Ligation avoided. Removal of supratentorial brain tumor in 2010. Social history. Smoked 0.5 pack a day for 13 years. No alcohol use. No drug use. Family history. Daughter has ADHD. Son has ADHD. Father alcoholism. Hepatitis C. Brother has asthma. Sister has asthma. Great-grandmother had breast cancer. MS. Maternal grandmother had rectal and lung cancer. Admission Exam Per Admitting Provider Physical Exam: General- Not in acute distress Head- atraumatic Eyes- PERRL Mouth - Poor dentition, swollen lips Neck- supple, no JVD. Lungs- clear to auscultation no wheezing or crackles Heart- regular rhythm; no murmur, no gallop. Abdomen- normal bowel sounds, soft, nontender, no distension Extremities- no pretibial edema, no erythema seen Neuro- alert, oriented PERRL, no facial palsy; no dysarthria; moves extremities Principal Diagnosis Dental abscess status post incision and drainage and extraction of multiple teeth Discharge Exam Lying in bed without any acute distress except some pain in the left side of the face Constitutional well developed, well nourished, + ill appearing and + obese Eyes PERRL, conjunctivae normal, anicteric sclerae ENMT Mouth: + oropharynx abnormality ( swelling of the left side of the face with tenderness) Neck trachea midline, no thyromegaly Respiratory no respiratory distress Auscultation: lungs clear to auscultation bilaterally Cardiovascular Rate/Rhythm: regular rate and regular rhythm; not tachycardic Heart Sounds: normal S1 and normal S2; no murmur Extremities: no edema Gastrointestinal (Abdomen) Inspection/Auscultation: normal bowel sounds; abdomen not distended Percussion/Palpation: abdomen soft; abdomen nontender Neurologic normal touch/pain/proprioception and moves all extremities; no focal motor deficits Psychiatric A+Ox3, euthymic affect Lymphatic no cervical or axillary lymphadenopathy Discharge Data Allergies Allergy/AdvReac Type Severity Reaction Status Date / Time metformin Allergy Severe EDEMA OF Verified 01/01/25 00:23 AIRWAY, Breathing difficulty,dizziness. salmon oil Allergy Severe anaphylaxis Verified 01/01/25 00:23 tuna oil Allergy Severe SOB/HIVES Verified 01/01/25 00:23 gabapentin AdvReac Intermediate FEELS OUT Verified 01/01/25 00:23 OF IT gadobutrol AdvReac Intermediate GI SYMPTOMS Verified 01/01/25 00:23 morphine AdvReac Intermediate Abdominal Verified 01/01/25 00:23 Pain Consultations 01/01/25 01:09 ED Decision to Admit Stat 01/01/25 07:11 Consult Oromaxillofacial Surgery Routine Procedures Performed Operation Date: 01/01/25 12:00 Actual Procedures p Extraction of Teeth #7,8,9,10,12,14,15,&18(Not Applicable) - Pedro Berumen DMD s Incision and Drainage of Upper Lip and Muccobuccal Fold(Not Applicable) - Pedro Berumen DMD Ordered Studies 12/31/24 22:00 CT face [CT facial bones w con] Stat Hospital Course (1) Dental infection: 44-year-old female with past med history significant for hypothyroidism, hyperinsulinemia, mild persistent asthma, single kidney, renal agenesis, history of positive urine drug screen, fibromyalgia, depression, tobacco use disorder, bipolar disorder, marijuana use, general anxiety disorder, overdose of tricyclic antidepressant, and currently states not taking any medications comes in with dental abscess. Patient noticed pain in the mouth today. Denies any fevers. Having difficulty swallowing because of pain. No headache. No runny nose or sore throat. No chest pain. No shortness of breath. No abdominal pain. Normal bowel and bladder movements. Hemodynamics are okay. Dental infection Dental abscess,Abscess around lip region Started onIV Unasyn and later on vancomycin was added due to history of MRSA Will check MRSA swab and if negative will DC vancomycin Remains n.p.o. and the pain is controlled with current intravenous Toradol Appreciate orofacial surgery input and recommendation Will have facial abscess incision and drainage today Has been feeling better following the dental procedure Tolerating regular diet without any fever and/or chills She will be discharged home this afternoon on oral antibiotic History of hypothyroidism Not taking medications Will follow thyroid profile- TSH is minimally high at 99.332 but free T4 is normal Likely to need replacement down the line advised to have a repeat checkup TSH in about 6 weeks History of hyperinsulinemia Will follow HbA1c levels- hemoglobin A1c is 5.3 History of asthma Will monitor History of bipolar disorder Generalized anxiety disorder Currently not on medications DVT prophylaxis SCDs Disposition Medical floor Full code Total Time Total Time Spent Total Time Spent (In Minutes): 35 Minutes Discharge Plan Discharge Items Patient Disposition: Home - Self-Care Reason For Visit: DENTAL ABSCESS Discharge Diagnosis: Dental abscess status post incision and drainage and extraction of multiple teeth Condition on Discharge: Good Activity: Resume your previous activity Non-emergency contact: Primary Care Provider Call non-emergency contact if: you have any medication questions and your symptoms worsen Follow-up/Referrals: Slim Adamson MD [Primary Care Provider] - (Your doctor's office will give you a call tomorrow with an appointment within 7 days) Diet: Regular Diet Texture: Easy to Chew Addtl Attending Provider Instructions: Please finish the course of antibiotic You can try some [id number] probiotics while on antibiotic Maintain oral hygiene as advised Please keep appointments with your healthcare providers Pending Studies at Discharge: No Stand-Alone Forms: My [facility], Smoking Cessation Medications and DC Order Prescriptions: New amoxicillin-pot clavulanate 875-125 mg Tablet 1 tab PO BIDM Qty: 10 0RF Discharge Orders: Discharge Order (Routine); Ordered 01/02/25 Ordered By: Inocencio Galo Admission Data Admit Date/Time: 01/01/25 01:57 Attending Provider: Inocencio Galo Admit Provider: Az Joshi Primary Care Provider: Slim Adamson Other Providers: Az Joshi; Pedro Berumen Other Interventions: Discharge Summary Assessment (RN) Last Done: 01/02/25 11:00
[2025-01-02] MEDS ORDERED: AMOXICILLIN/CLAVULANATE 875 MG TAB PO SCH (17:00)
== END 2025-01-02 11:24 | disposition home or self-care (01) | DRG 580 ==
LOC: ED 21:13 → 3E 01-01 01:57